=== PATIENT | male | born 1930 | race Two or more races ===

== ENCOUNTER 2020-04-18 02:40 | Inpatient (IN) | payer MEDICAID ==
[~2020-04-18] VITALS: Ht 165.1 cm; Wt 80.7 kg
[2020-04-18 03:55] VITALS: BP 140/73
--- NOTE | 2020-04-18 03:55 | NUR ---
MS UTILITY LOCATE TECHNICIAN NOTES PATIENT ARRIVED ON UNIT VIA GURNEY, ACCOMPANIED BY 2 EMT STAFF 0355; DIRECT ADMIT FROM [facility], RECEIVED REPORT FROM LUCIA VALENCIA 0300. 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
[2020-04-18 04:15] VITALS: BP 140/73
[2020-04-18] MEDS ORDERED: IV NS 0.9% 1,000 ML IV PRN (04:36)
[2020-04-18] MEDS ORDERED: PIPERACILLIN /TAZOBACTAM 3.375 G in IV D5W 50 ML IV ONE (05:00)
[2020-04-18] MEDS ORDERED: Z GUARD REMEDY 2 OZ OINT TP PRN (05:00)
[2020-04-18] MEDS ORDERED: ONDANSETRON HCL/PF 4 MG/2 ML VIAL IVP PRN (05:00)
[2020-04-18] MEDS ORDERED: PIPERACILLIN /TAZOBACTAM 3.375 G VIAL IV ONE (05:01)
--- NOTE | 2020-04-18 05:24 | NUR ---
MS RN NOTES SPOKE WITH DR. SCHERER REGARDING CHEMICAL PROPHYLAXIS; PER MD, HOLD OFF ON CHEMICAL PROPHYLAXIS D/T POSSIBLE PROCEDURE; NEEDS CARDIAC CLEARANCE, DR. PEDROZA ALSO AWARE; DVT PUMPS ORDERED BUT NO DVT MACHINE AVAILABLE, WILL ENDORSE TO ONCOMING SHIFT; WILL CONT TO MONITOR
--- NOTE | 2020-04-18 05:34 | NUR ---
MS RN NOTES MRSA SWAB COLLECTED VIA R NARE; SPECIMEN GIVEN TO SOFT TILE SETTER; AWAITING RESULTS
[2020-04-18] MEDS ORDERED: PIPERACILLIN /TAZOBACTAM 3.375 G in IV D5W 50 ML IV SCH (06:00)
--- NOTE | 2020-04-18 06:44 | NUR ---
MS RN CLOSING NOTES PATIENT RESTING IN BED COMFORTABLY; A/OX2 UKRAINIAN SPEAKER; BREATHING EVEN AND UNLABORED; NO SOB NOTED; PATIENT TOLERATING ROOM AIR WELL; R AC # 20 INTACT AND PATENT; FLUSHING WELL; NO S/S OF REDNESS OR INFILTRATION NOTED; ALL NEEDS RENDERED; NO CHEMICAL PROPHYLAXIS ORDERED PER MD D/T POSSIBLE PROCEDURE; PATIENT NPO STATUS MAINTAINED; SAFETY PRECAUTIONS IMPLEMENTED; BED LOCKED IN LOW POSITION; SIDE RAILS X2; CALL LIGHT WITHIN REACH; WILL ENDORSE MARLO TO ONCOMING SHIFT Addendum: 04/18/20 at 0730 by BECKI KAPADIA RN NO DVT PUMPS AVAILABLE DURING GEODESY TEACHER; CENTRAL SUPPLY INFORMED; DVT PUMPS ENDORSED TO LUCIA RAMIREZ
--- NOTE | 2020-04-18 07:30 | NUR ---
MS/RN Opening note Received patient in bed, sleeping, does no appears pain or any discomfort at this time. Skin is warm to touch, kept clean/dry, intact IV site site. Respiratory even and unlabored with room air. Noticed ABD distension, exist bowel sound on LUQ and LLQ only. Keep bed in lock position with low and elevated HOB for secure airway. Call light within reach, will continue to monitor.
[2020-04-18 08:17] LABS: BASOPHILS % (AUTO) 0.1 % (0.0-2.0); HEMATOCRIT 39 % (39-51); HEMOGLOBIN 12.7 g/dL (13.5-17.5); LYMPHOCYTES # (AUTO) 0.8 /CMM (0.8-4.8); LYMPHOCYTES % (AUTO) 2.5 % (20.0-44.0); MEAN CORPUSCULAR HGB CONC 33 g/dl (31.0-36.0); MEAN CORPUSCULAR VOLUME 96 fL (80-96); MONOCYTES # (AUTO) 1.1 /CMM (0.1-1.30); MONOCYTES % (AUTO) 3.5 % (2.0-12.0); NEUTROPHILS % (AUTO) 93.9 % (43.0-81.0); PLATELET COUNT (AUTO) 226 /CMM (150-450); RED BLOOD CELL COUNT(AUTO) 4.03 MIL/uL (4.5-6.0)
[2020-04-18] MEDS ORDERED: GABA-534 PO (08:39)
[2020-04-18] MEDS ORDERED: FURO40TA5 PO (08:39)
[2020-04-18] MEDS ORDERED: CARV12.52 PO (08:39)
[2020-04-18] MEDS ORDERED: INSU100V SQ (08:39)
[2020-04-18] MEDS ORDERED: INSU100V10 SQ (08:39)
[2020-04-18] MEDS ORDERED: ACET325T53 PO (08:39)
[2020-04-18] MEDS ORDERED: TERA2CAP4 PO (08:39)
[2020-04-18] MEDS ORDERED: ENAL2.5T17 PO (08:39)
[2020-04-18] MEDS ORDERED: ATOR40TA PO (08:39)
[2020-04-18 08:45] LABS: ALANINE AMINOTRANSFERASE 39 U/L (12-78); ALBUMIN 2.5 g/dL (3.4-5.0); ALKALINE PHOSPHATASE 137 U/L (46-116); ASPARTATE AMINOTRANSFERASE 33 U/L (15-37); BILIRUBIN,TOTAL 0.7 mg/dL (0.2-1.0); CALCIUM, SERUM 8.7 mg/dL (8.5-10.1); CARBON DIOXIDE 28 mmol/L (21-32); CHLORIDE 99 mmol/L (98-107); CREATININE 1.5 mg/dL (0.6-1.3); GLUCOSE 213 mg/dL (74-106); LIPASE 88 U/L (73-393); MAGNESIUM 1.9 mg/dL (1.8-2.4); PHOSPHORUS 3.8 mg/dL (2.5-4.9); POTASSIUM 4.6 mmol/L (3.5-5.1); SODIUM SERUM 136 mmol/L (136-145); TOTAL PROTEIN, SERUM 7.1 g/dL (6.4-8.2); UREA NITROGEN, BLOOD 20 mg/dL (7-18)
[2020-04-18 08:54] VITALS: BP 115/62
[2020-04-18 09:07] LABS: WHITE BLOOD COUNT (AUTO) 31.9 K/uL (4.3-11.0)
--- NOTE | 2020-04-18 09:10 | NUR ---
Patient noticed WBC critical value:31.9 this morning, Dr. Blackburn made aware.
[2020-04-18] MEDS: PIPERACILLIN /TAZOBACTAM 3.375 G in IV D5W 100 ML IV SCH ×2 (11:24→19:57)
[2020-04-18] MEDS: MORPHINE SULFATE INJ 2 MG/ML DISP.SYRIN IV PRN ×3 (11:25→22:38)
[2020-04-18] MEDS ORDERED: ENALAPRIL MALEATE (5 MG) 5 MG TABLET PO SCH (11:30)
[2020-04-18 11:59] LABS: BAND % (MANUAL) 2 % (0.0-5.0); LYMPHOCYTES % (MANUAL) 5 % (16-48); MONOCYTES % (MANUAL) 2 % (0-11.0); NEUTROPHILS % (MANUAL) 91 (42-76)
[2020-04-18 12:17] LABS: THYROID STIMULATING HORMONE 1.004 uIU/mL (0.358-3.74)
[2020-04-18 12:29] LABS: TRIGLYCERIDES 64 mg/dL (30-150)
[2020-04-18 12:30] LABS: CHOLESTEROL 83 mg/dL (<200); HDL CHOLESTEROL 27 mg/dL (40-60); LDL 40 mg/dL (0-99)
--- NOTE | 2020-04-18 13:30 | NUR ---
Patient going have procedure tomorrow, obtained sign for consent from Son/Carmelo Charles.
[2020-04-18 16:00] VITALS: BP 110/57
[2020-04-18] MEDS: GABAPENTIN 300 MG CAPSULE PO SCH (17:00)
--- NOTE | 2020-04-18 18:50 | NUR ---
MS/RN Closing note Patient in bed comfortable, does no appears pain or any discomfort at this time. Intact IV site and skin is warm to touch, kept clean/dry. Respiratory even and unlabored with room air. keep bed in locked position with low and elevated head of bed, call light within reach, will endorse hospital unit clerk.
[2020-04-18 20:00] VITALS: BP 120/63
[2020-04-18] MEDS: CARVEDILOL 12.5 MG TABLET PO SCH (21:00)
--- NOTE | 2020-04-18 21:01 | NUR ---
RN NOTE COREG AND HYTRIN HELD DUE TO NPO STATUS FOR SURGERY PER MD. BLOOD PRESSURE AND HEART RATE WNL.
[2020-04-18] MEDS: TERAZOSIN HCL 1 MG CAPSULE PO SCH (21:11)
[2020-04-19] MEDS: PIPERACILLIN /TAZOBACTAM 3.375 G in IV D5W 100 ML IV SCH ×3 (03:17→20:13)
--- NOTE | 2020-04-19 06:55 | NUR ---
RN CLOSING NOTE NO ACUTE CHANGES OBSERVED OVERNIGHT. PAT REMAINS ALERT AND ORIENTED X 2 WITH PERIODS OF CONFUSION. UNABLE TO OBTAIN URINE SAMPLE. PT IS PENDING PROCEDURE TODAY, CONSENT FORMS SIGNED. IV FLUIDS RUNNING ORDERED WITHOUT COMPLICATIONS NOTED AT SITE. CALL LIGHT WITHIN REACH, SAFETY MEASURES IN PLACE, WILL ENDORSE TO MORNING RN FOR CONTINUATION OF CARE.
[2020-04-19 07:09] LABS: HEMATOCRIT 36 % (39-51); HEMOGLOBIN 11.5 g/dL (13.5-17.5); LYMPHOCYTES # (AUTO) 0.6 /CMM (0.8-4.8); LYMPHOCYTES % (AUTO) 1.9 % (20.0-44.0); MEAN CORPUSCULAR HGB CONC 32 g/dl (31.0-36.0); MEAN CORPUSCULAR VOLUME 96 fL (80-96); MONOCYTES # (AUTO) 0.7 /CMM (0.1-1.30); MONOCYTES % (AUTO) 2.2 % (2.0-12.0); NEUTROPHILS # (AUTO) 29.6 /CMM (1.8-8.9); NEUTROPHILS % (AUTO) 95.9 % (43.0-81.0); PLATELET COUNT (AUTO) 219 /CMM (150-450); RED BLOOD CELL COUNT(AUTO) 3.71 MIL/uL (4.5-6.0)
[2020-04-19] MEDS ORDERED: MIDAZOLAM HCL 2 MG/2ML VIAL ONE (07:22)
[2020-04-19] MEDS ORDERED: FENTANYL PF 250MCG/5ML AMPUL ONE (07:22)
[2020-04-19] MEDS ORDERED: ROCURONIUM BROMIDE 50 MG/5 ML ONE (07:23)
[2020-04-19] MEDS ORDERED: FAMOTIDINE/PF INJ 20 MG/2 ML VIAL IV ONE (07:23)
[2020-04-19] MEDS ORDERED: BUPIVACAINE 0.5 % PF 150 MG/30 ML VIAL ONE (07:26)
[2020-04-19] MEDS ORDERED: ANESTHESIA TRAY IN PYXIS 1 EA TRAY MC ONE (07:26)
[2020-04-19 07:33] LABS: ALANINE AMINOTRANSFERASE 31 U/L (12-78); ALBUMIN 2.2 g/dL (3.4-5.0); ALKALINE PHOSPHATASE 121 U/L (46-116); ASPARTATE AMINOTRANSFERASE 27 U/L (15-37); BILIRUBIN,TOTAL 0.7 mg/dL (0.2-1.0); CALCIUM, SERUM 8.7 mg/dL (8.5-10.1); CARBON DIOXIDE 28 mmol/L (21-32); CHLORIDE 99 mmol/L (98-107); CREATININE 2.4 mg/dL (0.6-1.3); GLUCOSE 192 mg/dL (74-106); PHOSPHORUS 4.3 mg/dL (2.5-4.9); POTASSIUM 4.6 mmol/L (3.5-5.1); SODIUM SERUM 136 mmol/L (136-145); TOTAL PROTEIN, SERUM 6.9 g/dL (6.4-8.2); UREA NITROGEN, BLOOD 35 mg/dL (7-18)
--- NOTE | 2020-04-19 07:50 | NUR ---
MS/RN Opening Note Received patient in bed, AO x 2-3, able to responds all stimuli. Pt kept NPO status for procedure this morning, does no c/o pain or any discomfort at his time, skin is warm to touch, respiratory even and unlabored in room air. OR nurse picked up patient to down stair, patient in stable condition. V/S: bp-111/60, p-71, r-18, t-97.5, [id number] in RA. Will continue to monitor.
[2020-04-19 08:00] VITALS: BP 111/60
[2020-04-19 08:00] LABS: WHITE BLOOD COUNT (AUTO) 30.9 K/uL (4.3-11.0)
[2020-04-19] MEDS: GABAPENTIN 300 MG CAPSULE PO SCH ×2 (09:00→17:25)
[2020-04-19] MEDS: CARVEDILOL 12.5 MG TABLET PO SCH ×2 (09:00→21:00)
[2020-04-19 09:05] LABS: BAND % (MANUAL) 3 % (0.0-5.0); LYMPHOCYTES % (MANUAL) 1 % (16-48); MONOCYTES % (MANUAL) 2 % (0-11.0); NEUTROPHILS % (MANUAL) 94 (42-76)
[2020-04-19] MEDS ORDERED: HYDROMORPHONE 1 MG/1 ML DISP.SYRIN ONE (09:44)
--- NOTE | 2020-04-19 10:15 | NUR ---
Patient came back from procedure, 4 small section stitches on ABD, DEONTE tube sanguineous drainage 50cc at this time, dressing clean/dry no active bleeding from stitches. Pt denies pain or discomfort, in stable condition. V/S: bp-105/67, p-87, t-98.6, r-20, O2sat 92% with oxygen 2LPM. Will continue to monitor.
[2020-04-19 10:30] VITALS: BP 114/60
[2020-04-19 10:45] VITALS: BP 123/60
[2020-04-19 11:15] VITALS: BP 108/57
--- NOTE | 2020-04-19 11:40 | NUR ---
INITIAL ECHOCARDIOGRAM SHOWED EF 30%~.
[2020-04-19] MEDS: MORPHINE SULFATE INJ 2 MG/ML DISP.SYRIN IV PRN ×2 (13:28→23:25)
[2020-04-19] MEDS: oxyCODONE/APAP (5/325 MG) 1 UDTAB TABLET PO PRN (15:43)
[2020-04-19 15:51] LABS: CREATINE KINASE, TOTAL 23 U/L (39-308)
[2020-04-19 16:00] VITALS: BP 131/76
--- NOTE | 2020-04-19 18:30 | NUR ---
MS/RN Closing Note Patient in bed, remains s/p cholecystectomy, DEONTE tube on RLQ 345cc out put. Noticed pt moaning and given pain medication as needed. Respiration even and unlabored with room air. Skin is warm to touch, kept clean/dry at stitches site, no adverse reaction observed from ATB IV therapy. Kept bed in lock with low position and elevated head of bed for secure airway. Call light within reach, will endorse business job titles.
--- NOTE | 2020-04-19 19:25 | NUR ---
MS RN OPENING NOTES PATIENT SLEEPING IN BED, EASY TO AWAKEN. A/OX2-3. ON RA. NO S/S OF ACUTE RESPIRATORY DISTRESS; BREATHING IS EVEN AND UNLABORED. NO S/S OF PAIN NOTED. SURGICAL SITE IS DRY AND INTACT. JPEG PRESENT WITH 60 ML OF DARK BROWN FLUID. IV PRESENT ON RIGHT AC, SIZE 20, INTACT & PATENT, HEP LOCKED. IV PRESENT ON RIGHT FA, SIZE 22, INTACT & PATENT WITH KCL 20 MEQ NS RUNNING AT 20 ML/HR. SAFETY MEASURES IN PLACE AND PATIENT'S NEEDS MET. BED LOCKED, ALARM ON, SIDE RAILS X2, CALL LIGHT WITHIN REACH. WILL CONTINUE TO MONITOR.
[2020-04-19 20:00] VITALS: BP 118/69
[2020-04-19] MEDS: TERAZOSIN HCL 1 MG CAPSULE PO SCH (22:00)
--- NOTE | 2020-04-20 00:30 | NUR ---
MS RN NOTES PATIENT BECAME AGITATED AND MORE CONFUSED. BEGAN TAKING OFF GOWN AND PULLING ON IV LINE AND JPEG DRAIN. NOTIFIED CURING PRESS OPERATOR MD NATHALY GROSSMAN, RECEIVED ORDERS FOR BILATERAL SOFT WRIST RESTRAINTS..
[2020-04-20 03:20] VITALS: BP 151/77
[2020-04-20] MEDS: MORPHINE SULFATE INJ 2 MG/ML DISP.SYRIN IV PRN (03:27)
[2020-04-20] MEDS: PIPERACILLIN /TAZOBACTAM 3.375 G in IV D5W 100 ML IV SCH ×3 (04:47→20:34)
[2020-04-20 07:19] LABS: HEMATOCRIT 33 % (39-51); HEMOGLOBIN 10.9 g/dL (13.5-17.5); LYMPHOCYTES # (AUTO) 0.6 /CMM (0.8-4.8); LYMPHOCYTES % (AUTO) 2.7 % (20.0-44.0); MEAN CORPUSCULAR HGB CONC 33 g/dl (31.0-36.0); MEAN CORPUSCULAR VOLUME 96 fL (80-96); MONOCYTES # (AUTO) 0.5 /CMM (0.1-1.30); MONOCYTES % (AUTO) 2.2 % (2.0-12.0); NEUTROPHILS # (AUTO) 22.8 /CMM (1.8-8.9); NEUTROPHILS % (AUTO) 95.1 % (43.0-81.0); PLATELET COUNT (AUTO) 205 /CMM (150-450); RED BLOOD CELL COUNT(AUTO) 3.45 MIL/uL (4.5-6.0)
[2020-04-20 07:20] LABS: ALANINE AMINOTRANSFERASE 30 U/L (12-78); ALBUMIN 1.9 g/dL (3.4-5.0); ALKALINE PHOSPHATASE 108 U/L (46-116); ASPARTATE AMINOTRANSFERASE 33 U/L (15-37); BILIRUBIN,TOTAL 0.5 mg/dL (0.2-1.0); CALCIUM, SERUM 8.5 mg/dL (8.5-10.1); CARBON DIOXIDE 26 mmol/L (21-32); CHLORIDE 102 mmol/L (98-107); CREATININE 2.7 mg/dL (0.6-1.3); GLUCOSE 189 mg/dL (74-106); MAGNESIUM 2.2 mg/dL (1.8-2.4); PHOSPHORUS 4.1 mg/dL (2.5-4.9); POTASSIUM 4.5 mmol/L (3.5-5.1); SODIUM SERUM 136 mmol/L (136-145); TOTAL PROTEIN, SERUM 6.7 g/dL (6.4-8.2); UREA NITROGEN, BLOOD 45 mg/dL (7-18)
--- NOTE | 2020-04-20 07:30 | NUR ---
MS/ RN OPENING NOTES RECEIVED PATIENT SLEEPING IN BED. PATIENT ON ROOM AIR, NO S/S OF ACUTE RESPIRATORY DISTRESS NOTED; BREATHING IS EVEN AND UNLABORED. NO S/S OF PAIN NOTED. SURGICAL SITE IS DRY AND INTACT. JPEG PRESENT AND IN PLACE. IV PRESENT ON RIGHT AC #20G, INTACT & PATENT. SAFETY MEASURES IN PLACE, BED LOCKED AND IN LOW POSITION, ALARM ON, SIDE RAILS X2, CALL LIGHT WITHIN REACH. WILL CONTINUE TO MONITOR THROUGH SHIFT.
--- NOTE | 2020-04-20 07:41 | NUR ---
MS RN CLOSING NOTES PATIENT SLEEPING IN BED, EASY TO AWAKEN. A/OX2-3. ON RA. NO S/S OF ACUTE RESPIRATORY DISTRESS; BREATHING IS EVEN AND UNLABORED. NO S/S OF PAIN NOTED. SURGICAL SITES ARE DRY AND INTACT. JPEG REMAINS INTACT AND PATENT. IV PRESENT ON RIGHT AC, SIZE 20, INTACT & PATENT WITH KCL 20 MEQ NS RUNNING AT 75 ML/HR. SAFETY MEASURES IN PLACE AND PATIENT'S NEEDS MET. BED LOCKED, ALARM ON, SIDE RAILS X2, CALL LIGHT WITHIN REACH.WILL ENDORSE TO DAY SHIFT NURSE PLAN OF CARE.
--- NOTE | 2020-04-20 07:44 | NUR ---
MS RN CLOSING NOTES SOFT BILATERAL WRIST RESTRAINTS PRESENT. SKIN CIRCULATION REMAINS WNL.
[2020-04-20 08:00] VITALS: BP 121/65
[2020-04-20 08:07] LABS: PTH, INTACT 103 pg/mL (15-65)
[2020-04-20] MEDS: GABAPENTIN 300 MG CAPSULE PO SCH ×2 (09:00→17:48)
[2020-04-20] MEDS: CARVEDILOL 12.5 MG TABLET PO SCH ×2 (09:00→21:56)
--- NOTE | 2020-04-20 13:53 | NUR ---
MS/RN NOTE THE PATIENT BACK FROM [facility] AT 1350. WILL ADMINISTER ZOSYN SCHEDULED AT 1200.
[2020-04-20 16:00] VITALS: BP 124/71
[2020-04-20 16:06] LABS: *SPE A/G RATIO 0.6 (0.7-1.7); *SPE ALBUMIN 2.2 g/dL (2.9-4.4); *SPE ALPHA-1-GLOBULIN 0.5 g/dL (0.0-0.4); *SPE BETA GLOBULIN 1.1 g/dL (0.7-1.3); *SPE GLOBULIN, TOTAL 3.6 g/dL (2.2-3.9); *SPE M-SPIKE Not Observed g/dL (Not Observed)
--- NOTE | 2020-04-20 18:45 | NUR ---
MS/RN CLOSING NOTES PATIENT AWAKE IN BED, ALERT AND ORIENTED X 2. PATIENT ON ROOM AIR, NO S/S OF SOB OR ACUTE RESPIRATORY DISTRESS NOTED. PATIENT DEONTE DRAIN IN PLACE AND INTACT, OUTPUT 270ML DURING SHIFT, FLUID A DARK BROWN COLOR, THICK CONSISTENCY. IV IN RIGHT AC #20G IN PLACE AND INTACT RUNNING KCL 20 LEV 1/2 NS @ 75ML/HR. PATIENT HAS BILATERAL SOFT WRIST RESTRAINS IN PLACE AND NO SKIN BREAK DOWN AND NO S/S OF POOR CIRCULATION NOTED. SAFETY MEASURES IN PLACE, BED IN LOW POSITION AND LOCKED, SIDE RAILS UP X 3. WILL ENDORSE CARE TO ELECTRIC METER REPAIRER HELPER NURSE.
--- NOTE | 2020-04-20 19:10 | NUR ---
MS RN NOTES RECEIVED PT IN BED AND AWAKE. PT A/O X1-2 WITH PERIODS OF CONFUSION AND SAMI SPEAKING. RESPIRATIONS EVEN AND UNLABORED WITH NO S/S OF ACUTE DISTRESS OR SOB NOTED. PT NOTED WITH DEONTE DRAIN INTACT AND DRAINING. PT WITH IV IN RIGHT AC #20G PATENT AND INTACT INFUSING KCL 20 LEV 1/2 NS @ 75ML/HR. PT NOTED WITH BILATERAL SOFT WRIST RESTRAINS IN PLACE. SAFETY MEASURES IN PLACE WITH BED IN LOWEST LOCKED POSITION WITH SIDE RAILS UP X2. CALL LIGHT WITHIN REACH. WILL CONTINUE TO MONITOR.
[2020-04-20 20:00] VITALS: BP 131/71
[2020-04-20] MEDS: TERAZOSIN HCL 1 MG CAPSULE PO SCH (21:56)
[2020-04-21] MEDS: PIPERACILLIN /TAZOBACTAM 3.375 G in IV D5W 100 ML IV SCH ×3 (04:36→21:48)
[2020-04-21 07:29] LABS: BASOPHILS # (AUTO) 0.1 /CMM (0.0-0.2); BASOPHILS % (AUTO) 0.3 % (0.0-2.0); EOSINOPHILS % (AUTO) 0.2 % (0.0-6.0); HEMATOCRIT 33 % (39-51); HEMOGLOBIN 10.6 g/dL (13.5-17.5); LYMPHOCYTES # (AUTO) 0.9 /CMM (0.8-4.8); LYMPHOCYTES % (AUTO) 4.6 % (20.0-44.0); MEAN CORPUSCULAR HGB CONC 32 g/dl (31.0-36.0); MEAN CORPUSCULAR VOLUME 96 fL (80-96); MONOCYTES # (AUTO) 0.6 /CMM (0.1-1.30); MONOCYTES % (AUTO) 3.3 % (2.0-12.0); NEUTROPHILS # (AUTO) 17.5 /CMM (1.8-8.9); NEUTROPHILS % (AUTO) 91.6 % (43.0-81.0); PLATELET COUNT (AUTO) 206 /CMM (150-450); RED BLOOD CELL COUNT(AUTO) 3.41 MIL/uL (4.5-6.0); WHITE BLOOD COUNT (AUTO) 19.1 K/uL (4.3-11.0)
[2020-04-21 07:44] LABS: ALANINE AMINOTRANSFERASE 30 U/L (12-78); ALBUMIN 1.9 g/dL (3.4-5.0); ALKALINE PHOSPHATASE 138 U/L (46-116); ASPARTATE AMINOTRANSFERASE 41 U/L (15-37); BILIRUBIN,TOTAL 0.8 mg/dL (0.2-1.0); CALCIUM, SERUM 8.8 mg/dL (8.5-10.1); CARBON DIOXIDE 26 mmol/L (21-32); CHLORIDE 102 mmol/L (98-107); CREATININE 2.5 mg/dL (0.6-1.3); GLUCOSE 233 mg/dL (74-106); MAGNESIUM 2.4 mg/dL (1.8-2.4); PHOSPHORUS 3.3 mg/dL (2.5-4.9); POTASSIUM 4.4 mmol/L (3.5-5.1); SODIUM SERUM 137 mmol/L (136-145); TOTAL PROTEIN, SERUM 6.9 g/dL (6.4-8.2); UREA NITROGEN, BLOOD 52 mg/dL (7-18)
--- NOTE | 2020-04-21 07:45 | NUR ---
rn notes patient received on room air, no sob noted, patient shows no s/s of pain at this time. R ac 20 gauge with KCI 20 meq and 1/2 ns @ 75 ml per hour running. Might have to stop potassium IV because of 4.5 potassium level. bed at the lowest setting, call light within reach, side rails up x2.
[2020-04-21 07:51] LABS: CREATINE KINASE, TOTAL 33 U/L (39-308)
[2020-04-21 08:00] VITALS: BP 139/78
--- NOTE | 2020-04-21 08:12 | NUR ---
MS RN NOTES PT IN BED AND AWAKE. PT A/O X1-2 WITH PERIODS OF CONFUSION AND FRENCH SPEAKING. RESPIRATIONS EVEN AND UNLABORED WITH NO S/S OF ACUTE DISTRESS OR SOB NOTED THROUGHOUT SHIFT. PT KEPT CLEAN, DRY, AND COMFORTABLE. PT NOTED WITH DEONTE DRAIN INTACT AND DRAINING. PT WITH IV IN RIGHT AC #20G PATENT AND INTACT INFUSING KCL 20 LEV 1/2 NS @ 75ML/HR. PT NOTED WITH BILATERAL SOFT WRIST RESTRAINS IN PLACE. SAFETY MEASURES IN PLACE WITH BED IN LOWEST LOCKED POSITION WITH SIDE RAILS UP X2. CALL LIGHT WITHIN REACH. WILL ENDORSE TO ONCOMING NURSE FOR MARLO.
[2020-04-21] MEDS: CARVEDILOL 12.5 MG TABLET PO SCH ×2 (08:39→21:53)
[2020-04-21] MEDS: GABAPENTIN 300 MG CAPSULE PO SCH ×2 (08:39→17:11)
[2020-04-21 16:00] VITALS: BP 120/73
--- NOTE | 2020-04-21 17:48 | NUR ---
rn notes patient remains on room air, no sob noted, patient shows no s/s of pain at this time. Tajik speaking only. JPEG d/t cholecystectomy present, and drained 30 ml of blood and bile at this time. NPO after midnight is the plan. R AC at this time and will run IV NS @ 75 ml per hour due to normal range of K at 4.4. ECRP procedure scheduled tomorrow, ERCP consent signed by 2 RN's due to patient unable to sign off, consent from VERONIKA Rhodes. Bed at the lowest setting, call light within reach, side rails up x2.
--- NOTE | 2020-04-21 19:30 | NUR ---
PATIENT SEEN RESTRAINTS REMOVED FROM PREVIOUS SHIFT. PATIENT NOT GRABBING AT IV OR TUBES WILL CONT TO MONITOR. SR X3 CALL LIGHT IN REACH. PATIENT IN NO APPARENT RESP OR ACUTE DISTERESS RESP EVEN AND UNLABORED.
[2020-04-21] MEDS: TERAZOSIN HCL 1 MG CAPSULE PO SCH (21:52)
--- NOTE | 2020-04-21 22:00 | NUR ---
NO ORDER TO DISCONTINUE 1/2 NORMAL SALINE WITH KCL. IVF RESTARTED. TO ENDORSE CLARIFICATION TO AM SHIFT. WILL CONT TO MONITOR LABS.
[2020-04-22] VITALS (20 sets, daily range): BP systolic 88–153; BP diastolic 50–98
[2020-04-22] MEDS: PIPERACILLIN /TAZOBACTAM 3.375 G in IV D5W 100 ML IV SCH ×2 (03:41→12:00)
[2020-04-22 06:39] LABS: PTH, INTACT 65 pg/mL (15-65)
--- NOTE | 2020-04-22 07:02 | NUR ---
RN PM CLOSING NOTES. PATIENT DENIES PAIN. SLEPT FOR 8 HOURS LAST NIGHT AXO X1 CITIZEN OF [place] SPEAKING ASSISTED WITH TRANSLATION WITH MARGAUX WHITLOCK. PATIENT REORIENTED TO ROOM. IV RIGHT FA #22 INFUSING HALF NS WITH 20 KCL AT 75 ML PER HOUR NO S/S OF INFILTRATION. PAT BREATHING EVEN AND UNLABORED. NO INCIDIENCE LAST NIGHT. SRX3 BED ALARM ACTIVE. URINE COLLECTED THIS AM. BEDND DOWN CALL LIGHT IN REACH WILL ENDORSE TO AM SHIFT.
--- NOTE | 2020-04-22 07:41 | NUR ---
rn notes patient received on room air, no sob noted, a/o x1 and speaks only icelandic. NPO since midnight. R AC 20 and R fa 22 with 1/2 NS 75 ml per hour. bed at the lowest setting, call light within reach, side rails up x2.
[2020-04-22] MEDS: CARVEDILOL 12.5 MG TABLET PO SCH ×3 (08:01→21:41)
[2020-04-22] MEDS: GABAPENTIN 300 MG CAPSULE PO SCH ×2 (08:01→16:39)
[2020-04-22] MEDS ORDERED: INDOMETHACIN 50 MG SUPP.RECT ONE (11:16)
[2020-04-22] MEDS ORDERED: IOHEXOL 240MG/ML 100 ML IV ONE (11:16)
[2020-04-22] MEDS ORDERED: FAMOTIDINE/PF INJ 20 MG/2 ML VIAL IV ONE ×2 (11:55→15:09)
[2020-04-22] MEDS ORDERED: SUCCINYLCHOLINE CHLORIDE 20 MG/ML VIAL ONE (11:56)
[2020-04-22 12:06] LABS: *SPE A/G RATIO 0.6 (0.7-1.7); *SPE ALBUMIN 2.1 g/dL (2.9-4.4); *SPE ALPHA-1-GLOBULIN 0.5 g/dL (0.0-0.4); *SPE BETA GLOBULIN 1.3 g/dL (0.7-1.3); *SPE GLOBULIN, TOTAL 3.8 g/dL (2.2-3.9); *SPE M-SPIKE Not Observed g/dL (Not Observed)
[2020-04-22 12:18] LABS: APPEARANCE,URINE CLEAR (CLEAR); BILIRUBIN,URINE NEGATIVE (NEGATIVE); BLOOD, URINE SMALL Ery/uL (NEGATIVE); COLOR,URINE YELLOW (YELLOW); KETONES,URINE NEGATIVE (NEGATIVE); LEUKOCYTE ESTERASE ,URINE NEGATIVE (NEGATIVE); NITRITE, URINE NEGATIVE (NEGATIVE); PROTEIN,URINE 30 mg/dl (NEGATIVE); UGLUCOSE NEGATIVE (NEGATIVE); UROBILINOGEN,URINE 0.2 EU/dL (0.2)
[2020-04-22 12:55] LABS: WBC,URINE 0-2 /HPF (0-3)
[2020-04-22 12:56] LABS: BACTERIA,URINE None seen /HPF (None Seen); SQUAMOUS EPITHELIAL CELL,UR Rare /HPF (None Seen)
[2020-04-22] MEDS ORDERED: IV NS 0.9% 1,000 ML IV PRN (12:58)
[2020-04-22 12:59] LABS: URIC ACID CRYSTALS,URINE Few /HPF (None Seen)
[2020-04-22 13:48] LABS: EOSINOPHIL,URINE None Seen
[2020-04-22 13:58] LABS: CREATININE, URINE 66.6 MG/DL (30.0-125.0); URINE TOTAL PROTEIN 113.3 mg/dL (0-11.9)
[2020-04-22] MEDS ORDERED: MIDAZOLAM HCL 2 MG/2ML VIAL ONE (15:08)
[2020-04-22] MEDS ORDERED: FENTANYL PF 250MCG/5ML AMPUL ONE (15:08)
[2020-04-22] MEDS ORDERED: ROCURONIUM BROMIDE 50 MG/5 ML ONE (15:09)
[2020-04-22] MEDS ORDERED: METHYLENE BLUE 10 ML VIAL ONE (16:00)
[2020-04-22] MEDS ORDERED: PROPOFOL 100 ML ONE (16:44)
--- NOTE | 2020-04-22 17:02 | NUR ---
rn notes patient transferred to ICU, given report to Milagro, patient is coming from surgery/recovery room
--- NOTE | 2020-04-22 17:08 | NUR ---
RN NOTES PT RECEIVED FROM OR IN ROOM 259, PT IS INTUBATED, ON VENT, RESPONSE TO PAINFUL STIMULI, DOES NOT FOLLOW COMMAND, STILL SEDATED FROM ANESTHESIA ,TOLERATING VENT SETTING WELL, AC 16 , TV 500, FIO2 50%, FIO2 100%, PEEP 5 AT THIS TIME, ON TELE HR IN 70 AV PACING, NGT TO LIS PER MD ORDER, DEONTE DRAIN TO R LOWER ABDOMEN INTACT WITH SMALL AMOUNT OF BLOODY DRAINAGE , DRESSINGS TO ABDOMEN CLEAN, DRY AND INTACT, MAGANA DRINING TO GRAVITY WITH YELLOW CLEAR URIN , R AC AND R FA IV SITES CLEAN, DRY AND INTACT, NO SKIN BREAKDOWN NOTED, SR UP x3, CALL LIGHT WITHIN EASY REACH, BED LOCKED AND IN LOWEST POSITION, CONTINUE TO MONITOR.
[2020-04-22 17:48] LABS: BASOPHILS # (AUTO) 0.1 /CMM (0.0-0.2); BASOPHILS % (AUTO) 1.2 % (0.0-2.0); EOSINOPHILS % (AUTO) 0.6 % (0.0-6.0); HEMATOCRIT 37 % (39-51); HEMOGLOBIN 11.9 g/dL (13.5-17.5); LYMPHOCYTES # (AUTO) 0.8 /CMM (0.8-4.8); LYMPHOCYTES % (AUTO) 7.2 % (20.0-44.0); MEAN CORPUSCULAR HGB CONC 32 g/dl (31.0-36.0); MEAN CORPUSCULAR VOLUME 98 fL (80-96); MONOCYTES # (AUTO) 0.8 /CMM (0.1-1.30); MONOCYTES % (AUTO) 7.5 % (2.0-12.0); NEUTROPHILS # (AUTO) 9.1 /CMM (1.8-8.9); NEUTROPHILS % (AUTO) 83.5 % (43.0-81.0); PLATELET COUNT (AUTO) 161 /CMM (150-450); RED BLOOD CELL COUNT(AUTO) 3.82 MIL/uL (4.5-6.0); WHITE BLOOD COUNT (AUTO) 10.9 K/uL (4.3-11.0)
[2020-04-22 17:58] LABS: ABG BASE EXCESS -4.7 mmol/L; ABG OXYGEN SATURATION 99.7 % (92.0-98.5); ABG PH 7.363 (7.350-7.450); ABG PO2 438.8 mmHg (75.0-100.0); AaDO2 238.2 mmHg; COHb 0.3 % (0.5-1.5); MetHb 0.2 % (0.0-1.5); O2Hb 99.2 % (94.0-97.0); SITE, ABG Left Radial
[2020-04-22 18:15] LABS: ALANINE AMINOTRANSFERASE 46 U/L (12-78); ALBUMIN 1.8 g/dL (3.4-5.0); ALKALINE PHOSPHATASE 181 U/L (46-116); ASPARTATE AMINOTRANSFERASE 61 U/L (15-37); BILIRUBIN,TOTAL 0.7 mg/dL (0.2-1.0); CALCIUM, SERUM 8.4 mg/dL (8.5-10.1); CARBON DIOXIDE 24 mmol/L (21-32); CHLORIDE 105 mmol/L (98-107); CREATININE 2.2 mg/dL (0.6-1.3); GLUCOSE 204 mg/dL (74-106); MAGNESIUM 2.4 mg/dL (1.8-2.4); PHOSPHORUS 4.2 mg/dL (2.5-4.9); POTASSIUM 5.4 mmol/L (3.5-5.1); SODIUM SERUM 137 mmol/L (136-145); TOTAL PROTEIN, SERUM 6.7 g/dL (6.4-8.2); UREA NITROGEN, BLOOD 44 mg/dL (7-18)
--- NOTE | 2020-04-22 18:55 | NUR ---
RN NOTES PT REMAINS SEDATED, VSS STABLE, FIO2 50% AT THIS TIME, WILL ENDOSE TO SLAG SKIMMER NURSE FOR CONTINUITY OF CARE.
[2020-04-22] MEDS: IV 0.45% NS W/20 MEQ KCL 1L IV PRN ×2 (19:00)
[2020-04-22] MEDS: PROPOFOL 100 ML IV PRN (20:05)
[2020-04-22] MEDS: ANCEF 1 GM/50 ML D5W IV SCH ×2 (20:17)
--- NOTE | 2020-04-22 20:30 | NUR ---
RN NOTES RECEIVED PT STARTED ON SEDATION PATIENT IS MOVING ON BED TRYING TO TOUCH TUBE. ORALLY INTUBATED WITH ETT 8 AND 22 CM AT LIPLINE WITH VENT SETTING OF AC 16 TV 500 FIO2 50% AND PEEP 5 TOLERATED WELL SATURATION 100%. AFEBRILE. V PACING ON TELE MONITOR. NGT ON LIS WITH COLOR BLUE OUTPUT DUE TO METHYLENE BLUE ADMINISTERED DURING OPERATION. IV ISTE ON RAC G 20 RFA G 22 LEVOPHED RUNNING TITRATED ORDERED. IVF WITH KCL @ 125 ML.HR TOLERATED WELL. 4 PUNCTURE NOTED IN ABDOMEN INTACT NO BLEEDING. DEONTE DRAINED WITH BLOODY COLOR OUTPUT. KEPT PT CLEAN AND DRY. T/R FOR COMFORT. WILL CONT. POC.
[2020-04-22] MEDS: METRONIDAZOLE 500MG/ NS 100ML 500 MG in PREMIX 1 EA IV SCH (20:33)
[2020-04-22] MEDS: PANTOPRAZOLE 40 MG VIAL IV SCH (21:40)
[2020-04-22] MEDS: TERAZOSIN HCL 1 MG CAPSULE PO SCH (22:00)
[2020-04-23] VITALS (18 sets, daily range): BP systolic 91–129; BP diastolic 43–69
[2020-04-23] MEDS: IV 0.45% NS W/20 MEQ KCL 1L IV PRN ×2 (03:26)
[2020-04-23] MEDS: ANCEF 1 GM/50 ML D5W IV SCH ×6 (03:32→20:00)
[2020-04-23 04:09] LABS: BASOPHILS % (AUTO) 0.2 % (0.0-2.0); EOSINOPHILS % (AUTO) 0.1 % (0.0-6.0); HEMATOCRIT 35 % (39-51); HEMOGLOBIN 11.3 g/dL (13.5-17.5); LYMPHOCYTES # (AUTO) 0.5 /CMM (0.8-4.8); LYMPHOCYTES % (AUTO) 3.5 % (20.0-44.0); MEAN CORPUSCULAR HGB CONC 33 g/dl (31.0-36.0); MEAN CORPUSCULAR VOLUME 96 fL (80-96); MONOCYTES # (AUTO) 0.7 /CMM (0.1-1.30); MONOCYTES % (AUTO) 5.3 % (2.0-12.0); NEUTROPHILS # (AUTO) 12.5 /CMM (1.8-8.9); NEUTROPHILS % (AUTO) 90.9 % (43.0-81.0); PLATELET COUNT (AUTO) 172 /CMM (150-450); WHITE BLOOD COUNT (AUTO) 13.7 K/uL (4.3-11.0)
[2020-04-23 04:38] LABS: ALANINE AMINOTRANSFERASE 27 U/L (12-78); ALBUMIN 1.7 g/dL (3.4-5.0); ALKALINE PHOSPHATASE 152 U/L (46-116); ASPARTATE AMINOTRANSFERASE 33 U/L (15-37); BILIRUBIN,TOTAL 0.8 mg/dL (0.2-1.0); CALCIUM, SERUM 8.2 mg/dL (8.5-10.1); CARBON DIOXIDE 23 mmol/L (21-32); CHLORIDE 107 mmol/L (98-107); CREATININE 2.2 mg/dL (0.6-1.3); GLUCOSE 192 mg/dL (74-106); MAGNESIUM 2.1 mg/dL (1.8-2.4); SODIUM SERUM 139 mmol/L (136-145); TOTAL PROTEIN, SERUM 6.1 g/dL (6.4-8.2); UREA NITROGEN, BLOOD 44 mg/dL (7-18)
[2020-04-23] MEDS: METRONIDAZOLE 500MG/ NS 100ML 500 MG in PREMIX 1 EA IV SCH ×3 (04:44→21:00)
--- NOTE | 2020-04-23 07:05 | NUR ---
RN NOTES RECEIVED PT ON BED, ORALLLY INTUBATED, AND SEDATED, ETT 8 AND 22 CM AT LIPLINE WITH VENT SETTING OF AC 16 TV 500 FIO2 50% AND PEEP 5 TOLERATED WELL SATURATION 100%. AFEBRILE. V PACING ON TELE MONITOR HR IN 70'S, NGT ON LIS WITH COLOR BLUE OUTPUT DUE TO METHYLENE BLUE ADMINISTERED DURING OPERATION. IV SITES ON RAC G 20 RFA G 22 , IVF WITH KCL @ 125 ML.HR RUNNING, DRESSINGS TO ABDMENT CLEAN, DRY AND INTACT, DEONTE DRAINED WITH SMALL AMOUNT OF BLOODY COLOR DRAINAGE OUTPUT. KEPT PT CLEAN AND DRY. WILL CONTINUE TO MONITOR.
--- NOTE | 2020-04-23 07:09 | NUR ---
RN NOTES CONTINUE ON SEDATION. ET AND VENT SETTING TOLERATED WELL FIO2 @ 40 %. TOLERATED WITH SATURATION 98%. TMAX 99.2 DEG [facility]. INCONTINENT CARE RENDERED. IV SITE INTACT AND PATENT RUNNING WITH PROPOFOL AND IVF. NGT ON LIS STILL WITH METHYLENE BLUE. PUNCTURE SITE ON ABDOMEN KEPT CLEAN AND DRY. ENDORSED CONTINUITY OF CARE TO AM NURSE.
[2020-04-23] MEDS: IV NS 0.9% 1,000 ML IV PRN ×2 (08:05→23:15)
[2020-04-23] MEDS: GABAPENTIN 300 MG CAPSULE PO SCH ×2 (08:17→16:32)
[2020-04-23] MEDS: PANTOPRAZOLE 40 MG VIAL IV SCH ×2 (08:17→20:58)
[2020-04-23] MEDS: CARVEDILOL 12.5 MG TABLET PO SCH ×2 (08:18→20:57)
[2020-04-23] MEDS: PROPOFOL 100 ML IV PRN (08:22)
[2020-04-23] MEDS ORDERED: DC PROPOFOL WHEN EXTUBATED XX PRN ×2 (09:00→11:15)
[2020-04-23 11:07] LABS: ABG BASE EXCESS -4.8 mmol/L; ABG OXYGEN SATURATION 98.3 % (92.0-98.5); ABG PCO2 29.2 mmHg (35.0-45.0); ABG PH 7.421 (7.350-7.450); AaDO2 138.6 mmHg; COHb 0.3 % (0.5-1.5); MetHb 0.1 % (0.0-1.5); O2Hb 97.9 % (94.0-97.0); SITE, ABG Left Radial; VENT MODE, BG SIMV 4 500 PS15 +5 40%
--- NOTE | 2020-04-23 11:15 | NUR ---
RN NOTES ABG DONE , DR BAILEY CRAWLEY, PT ON SIMV MODE, ORDER RECEIVED TO EXTUBATE PT. PT GOT EXTUBATED , VSS STABLE, PT IS CONFUSED, AND PULLING ON HIS LINES, LAYO PROTECTIVE DEVICE ON FOR PT SAFETY . CONTINUE TO MONITOR .
[2020-04-23] MEDS: ACETAMINOPHEN 325 MG TABLET PO PRN ×2 (13:14→20:57)
--- NOTE | 2020-04-23 18:39 | NUR ---
RN NOTES PT TOLERANG 02 AT 2L O2 N/C WELL, NO SOB NOTED, O2 SAT WNL, NGT TO LIS WITH SMALL AMOUNT OF DRAINING , NS AT 70CC/HR RUNNING , SR UP X3, CALL LIGHT WITHIN EASY REACH, BED LOCKED AND IN LOWEST POSITION, WILL ENDOSE TO SUPERVISOR CIGAR MAKING HAND NURSE FOR CONTINUITY OF CARE .
--- NOTE | 2020-04-23 19:38 | NUR ---
ELECTROMECHANICAL EQUIPMENT ASSEMBLER OPENING NOTES: Received pt in bed, opens eyes but does not follow commands. On 3L/min NC tolerating well. No SOB or respiratory distress noted. AV pacing on tele monitor. No pain noted at this time. NGT to light suction. RAC #20 and RFA #22 patent and flushing. Dressing c/d/i. NS at 70ml/hr infusing. DEONTE drain to right lower abdomen. Ryan cath in place patent and draining urine. Safety measures in place. Will continue to monitor.
[2020-04-23] MEDS: TERAZOSIN HCL 1 MG CAPSULE PO SCH (21:18)
[2020-04-24] VITALS (18 sets, daily range): BP systolic 97–143; BP diastolic 55–85
[2020-04-24] MEDS: ANCEF 1 GM/50 ML D5W IV SCH ×6 (04:00→20:23)
[2020-04-24 04:19] LABS: BASOPHILS % (AUTO) 0.1 % (0.0-2.0); EOSINOPHILS % (AUTO) 0.3 % (0.0-6.0); HEMATOCRIT 34 % (39-51); HEMOGLOBIN 10.9 g/dL (13.5-17.5); LYMPHOCYTES # (AUTO) 0.7 /CMM (0.8-4.8); LYMPHOCYTES % (AUTO) 3.9 % (20.0-44.0); MEAN CORPUSCULAR HGB CONC 32 g/dl (31.0-36.0); MEAN CORPUSCULAR VOLUME 96 fL (80-96); MONOCYTES # (AUTO) 1.1 /CMM (0.1-1.30); MONOCYTES % (AUTO) 5.8 % (2.0-12.0); NEUTROPHILS # (AUTO) 16.6 /CMM (1.8-8.9); NEUTROPHILS % (AUTO) 89.9 % (43.0-81.0); PLATELET COUNT (AUTO) 191 /CMM (150-450); RED BLOOD CELL COUNT(AUTO) 3.54 MIL/uL (4.5-6.0); WHITE BLOOD COUNT (AUTO) 18.5 K/uL (4.3-11.0)
[2020-04-24 04:36] LABS: ALBUMIN 1.7 g/dL (3.4-5.0); ALKALINE PHOSPHATASE 126 U/L (46-116); ASPARTATE AMINOTRANSFERASE 17 U/L (15-37); BILIRUBIN,TOTAL 0.6 mg/dL (0.2-1.0); CALCIUM, SERUM 8.3 mg/dL (8.5-10.1); CARBON DIOXIDE 21 mmol/L (21-32); CHLORIDE 108 mmol/L (98-107); CREATININE 2.1 mg/dL (0.6-1.3); GLUCOSE 184 mg/dL (74-106); MAGNESIUM 2.2 mg/dL (1.8-2.4); PHOSPHORUS 3.2 mg/dL (2.5-4.9); POTASSIUM 4.4 mmol/L (3.5-5.1); SODIUM SERUM 140 mmol/L (136-145); TOTAL PROTEIN, SERUM 6.2 g/dL (6.4-8.2); UREA NITROGEN, BLOOD 41 mg/dL (7-18)
[2020-04-24 04:58] LABS: ALANINE AMINOTRANSFERASE 12 U/L (12-78)
[2020-04-24] MEDS: METRONIDAZOLE 500MG/ NS 100ML 500 MG in PREMIX 1 EA IV SCH ×3 (05:00→21:05)
--- NOTE | 2020-04-24 06:38 | NUR ---
EPIC ANESTHESIA ANALYST CLOSING NOTES: Pt remains on 3L/min NC tolerating well. V pacing on tele monitor. No SOB or respiratory distress noted throughout shift. No acute changes noted throughout shift. Right NGT on low intermittent suction. DEONTE drain to right lower abdomen. All meds administered as ordered. Safety measures in place. Will endorse to AM nurse for MARLO.
[2020-04-24] MEDS: PANTOPRAZOLE 40 MG VIAL IV SCH ×2 (08:35→21:59)
[2020-04-24] MEDS: GABAPENTIN 300 MG CAPSULE PO SCH ×2 (08:35→18:10)
[2020-04-24] MEDS: CARVEDILOL 12.5 MG TABLET PO SCH ×2 (08:36→22:01)
[2020-04-24] MEDS: oxyCODONE/APAP (5/325 MG) 1 UDTAB TABLET PO PRN ×2 (12:32→18:10)
--- NOTE | 2020-04-24 13:25 | NUR ---
Pt remains alert and oriented to self only, confused of time, place and situation, easily reoriented. Follows commands. Pt only speaks German. Was able to remove the wrist restraints after pt was reoriented for safety precautions. Was able to titrate O2 down from 3 LPM/NC to RA. Discontinued NGT, Swallow eval done and was started on pureed diet, tolerating well with ice chips. Gave Percocet for pain, pt was moaning, grimacing and was restless. DEONTE patent and intact, was seen by surgery today, ordered to downgrade to tele. Will give report to telemarketer supervisor.
--- NOTE | 2020-04-24 13:55 | NUR ---
rn notes PATIENT TRANSFER FROM ICU TELE , MONITOR ON SR-72,REPORT GET FROM ICE RN. PATIENT CROATIAN SPEAKER MALE ON ROOM AIR A/O X2/3 REDIRECTABLE. NO ACUTE RESPIRATORY DISTRESS, V/S TAKEN BP 109/56, R-19, P-69, T-97.6, O2-95 ROOM AIR. PATIENT ABDOMEN DISTENDED, INTACT SURGICAL DRESSING, BOWEL SOUNDS FOUR QUADRANT OF ABDOMEN. DEONTE INTACT, MAGANA CATHETER DRAINING LIGHT YELLOW OUTPUT, IV ACCESS ON RIGHT AC INTACT INFUSING ANCEF AT THIS TIME. ASSIST PATIENT TURN AND REPOSTION Q 2 HR, CALL LIGHT WITHIN TO REACH, DVT PUMP ON, KEEP HOB ELEVATED ON 35 DEGREE. CONTINUED MONITORING.
--- NOTE | 2020-04-24 18:10 | NUR ---
RN NOTES PATIENT WAS COMPLAINING OF PAIN GENERALIZED /. ADMINISTERED PERCOCET 5/325 MG PO PRN, AND SCHEDULED MEDICATION, J--58 ML, AND F/C DRAINING 200 ML OF GREENISH OUTPUT, ASSIST PATIENT TURN AND REPOSTION Q2 HR, PATIENT GET ASSIST DINNER VIA SALES MERCHANDISER. CALL LIGHT WITHIN TO REACH. ENDORSED ONCOMING NURSE FOLLOW PLAN OF CARE.
--- NOTE | 2020-04-24 19:05 | NUR ---
RN NOTES: RECEIVED PATIENT ASLEEP ON SHYANNE FOWLERS POSITION, ON SHIPPING CLERK ON SR-70 V-PACING, A/OX1-2 WITH PERIODS OF CONFUSION AND FORGETFULNESS, ABLE TO MAKE NEEDS KNOWN AND FOLLOW DIRECTION, BRUNEIAN SPEAKING ONLY. NO ACUTE RESPIRATORY DISTRESS.ON ROOM AIR SO2-96%, NOTED ABDOMEN IS DISTENDED, INTACT SURGICAL DRESSING, BOWEL SOUNDS FOUR QUADRANT OF ABDOMEN. DEONTE DRAIN INTACT DRAINING IN SEROSANGUINEOUS DRAINAGE , MAGANA CATHETER INTATC, DRAINING INTO LIGHT YELLOWISH URINE AT 100 CC LEVEL, IV ACCESS ON RIGHT AC INTACT. FALL,SAFETY AND ASPIRATION PRECAUTION OBSERVED, KEPT CALL LIGHT WITHIN EASY REACH, ORIENTED TO UNIT AND STAFF. FOR CLOSE WATCH.
[2020-04-24] MEDS: TERAZOSIN HCL 1 MG CAPSULE PO SCH (22:05)
[2020-04-24] MEDS: ACETAMINOPHEN 325 MG TABLET PO PRN (23:52)
--- NOTE | 2020-04-24 23:56 | NUR ---
RN NOTES: CLEAN AND CHANGE, REPOSITIONING DONE AFTER THAT COMPLAINED OF PAIN, OFFERED TYLENOL HE AGREE, NON PHARMACOLOGIC INTERVENTION RENDERED, DIM LIT AND WARM BLANKET GIVEN.
[2020-04-25] VITALS: BP 121/69
[2020-04-25] MEDS: ANCEF 1 GM/50 ML D5W IV SCH ×6 (03:25→20:29)
[2020-04-25 04:00] VITALS: BP 144/69
[2020-04-25] MEDS: METRONIDAZOLE 500MG/ NS 100ML 500 MG in PREMIX 1 EA IV SCH ×3 (04:00→21:11)
[2020-04-25] MEDS: ACETAMINOPHEN 325 MG TABLET PO PRN (05:59)
[2020-04-25 06:00] VITALS: BP 130/70
--- NOTE | 2020-04-25 06:08 | NUR ---
RN NOTES: COMPLAINED OF MILD PAIN PER A JAPANESE SPEAKING STAFF, HE ASK FOR TYLENOL, GIVEN, NON PHARMACOLOGIC INTERVENTION RENDERED.
--- NOTE | 2020-04-25 07:13 | NUR ---
RN NOTES: PATIENT TRYING TO TAKE IN BETWEEN NAP, NO PAIN OR DISCOMFORT AT THIS TIME, KEPT ON CLOSE WATCH, NO LABS FOR TODAY, ABDOMEN STILL DISTENDED, DRAINED 75 ML FROM JAMI BOWDEN DRAIN, TOTAL URINE [id number], NO BM, NO NAUSEA OR VOMITING NOTED,KEPT ON CLOSE WATCH, CALL LIGHT WITHIN EASY REACH, REPOSITIONED.
--- NOTE | 2020-04-25 07:25 | NUR ---
GAS TRANSFER OPERATOR NOTES RECEIVED PT IN BED, ASLEEP, EASILY AROUSED, A/OX 2, WOLOF SPEAKING. PT TOLERATING RA, WITH NO ACUTE RESPIRATORY DISTRESS NOTED. ON TELEMONITORING VPACED 75. PIVS TO RAC G20 AND RFA G22, BOTH FLUSHED WITH NS, INTACT AND OPERATIONAL. DEONTE DRAIN NOTED WELL. FC IN PLACE WITH YELLOW URINE NOTED IN THE BAG. PT KEPT COMFORTABLE. CALL LIGHT KEPT WITHIN REACH. PT'S BED IN LOWEST, LOCKED POSITION WITH SRX3. WILL CONTINUE PLAN OF CARE.
[2020-04-25 08:00] VITALS: BP 145/75
[2020-04-25] MEDS: GABAPENTIN 300 MG CAPSULE PO SCH ×2 (08:18→17:00)
[2020-04-25] MEDS: CARVEDILOL 12.5 MG TABLET PO SCH ×2 (08:18→21:00)
[2020-04-25] MEDS: PANTOPRAZOLE 40 MG VIAL IV SCH (08:18)
--- NOTE | 2020-04-25 11:15 | NUR ---
MS RN NOTES SEEN AND EVALUATED BY DR. PEDROZA. PT PUT ON NPO, ORDERED KUB. WILL CONTINUE PLAN OF CARE.
[2020-04-25 12:37] LABS: BASOPHILS # (AUTO) 0.1 /CMM (0.0-0.2); BASOPHILS % (AUTO) 0.4 % (0.0-2.0); EOSINOPHILS % (AUTO) 0.6 % (0.0-6.0); HEMATOCRIT 35 % (39-51); HEMOGLOBIN 11.3 g/dL (13.5-17.5); LYMPHOCYTES # (AUTO) 0.6 /CMM (0.8-4.8); LYMPHOCYTES % (AUTO) 3.4 % (20.0-44.0); MEAN CORPUSCULAR HGB CONC 32 g/dl (31.0-36.0); MEAN CORPUSCULAR VOLUME 97 fL (80-96); NEUTROPHILS # (AUTO) 17.2 /CMM (1.8-8.9); NEUTROPHILS % (AUTO) 90.6 % (43.0-81.0); PLATELET COUNT (AUTO) 242 /CMM (150-450); RED BLOOD CELL COUNT(AUTO) 3.63 MIL/uL (4.5-6.0)
[2020-04-25 12:53] LABS: ALANINE AMINOTRANSFERASE < 6 U/L (12-78); ALBUMIN 1.8 g/dL (3.4-5.0); ALKALINE PHOSPHATASE 115 U/L (46-116); ASPARTATE AMINOTRANSFERASE 14 U/L (15-37); BILIRUBIN,TOTAL 0.5 mg/dL (0.2-1.0); CALCIUM, SERUM 8.7 mg/dL (8.5-10.1); CARBON DIOXIDE 25 mmol/L (21-32); CHLORIDE 108 mmol/L (98-107); CREATININE 1.8 mg/dL (0.6-1.3); GLUCOSE 223 mg/dL (74-106); SODIUM SERUM 142 mmol/L (136-145); TOTAL PROTEIN, SERUM 6.8 g/dL (6.4-8.2); UREA NITROGEN, BLOOD 35 mg/dL (7-18)
--- NOTE | 2020-04-25 14:13 | NUR ---
MS RN NOTES RN MADE AWARE DR. PEDROZA REGARDING KUB RESULT. ORDERED TO PLACE PICCLINE AND TO START TPN PER PHARMACY DOSING. CHARGE NURSE MADE AWARE WELL. WILL CONTINUE TO MONITOR.
[2020-04-25] MEDS ORDERED: TPN/PPN PER PHARMACY XX PRN (14:30)
--- NOTE | 2020-04-25 15:58 | NUR ---
MS RN NOTES RECEIVED CALL FROM PHARMACY, SPOKE TO GRACY REGARDING TPN ORDER. PER PHARMACY, PT HAS TO BE NPO FOR 5 DAYS BEFORE GIVING TPN. CHARGE NURSE/RADHA INVOLVED. ADVISED TO CALL HOSPITALIST/ED AND TO SPEAK TO DR. PEDROZA HIMSELF. PAGED MD/ED, AWAITING FOR CALL BACK.
[2020-04-25 16:00] VITALS: BP 143/80
--- NOTE | 2020-04-25 16:15 | NUR ---
MS RN NOTES RECEIVED CALL BACK FROM DR. DYER REGARDING TPN ORDER OF DR PEDROZA. TO OVERRIDE PHARMACY PROTOCOL AND TO HAVE PICC LINE INSERTED AND START TPN WHEN AVAILABLE. PT MADE AWARE OF THE PLAN WELL.
[2020-04-25] MEDS ORDERED: DEXTROSE 50%-WATER 50 ML DISP.SYRIN IV PRN (16:30)
[2020-04-25] MEDS ORDERED: TPN BAG #1 IV SCH ×5 (16:30)
--- NOTE | 2020-04-25 16:30 | NUR ---
MS RN NOTES CONSENT FOR PICC LINE PROVIDED BY SON/MAEGAN VIA PHONE, WITNESSED BY ANOTHER RN/ADÁN. PER CHARGE NURSE/RADHA, PICC LINE NURSE WILL BE COMING TONIGHT AT 8PM FOR INSERTION. PHARMACY CALLED AND SPOKE TO GEN MADE AWARE WELL. PT MADE AWARE. WILL ENDORSE TO INCOMING NIGHT NURSE FOR MARLO.
[2020-04-25] MEDS ORDERED: FEE TPN 1 MIN EA MC ONE (16:42)
[2020-04-25] MEDS: BLOOD SUGAR DIAGNOSTIC 1 EACH STRIP IN SCH (17:58)
--- NOTE | 2020-04-25 18:50 | NUR ---
MS RN NOTES PT REMAINS IN BED, INTERMITTENTLY DOZING OFF, EASILY AROUSED, A/OX 2, MALAY SPEAKING. PT TOLERATING RA, WITH NO ACUTE RESPIRATORY DISTRESS NOTED. PIVS TO RAC G20 AND RFA G22, BOTH FLUSHED WITH NS, INTACT AND OPERATIONAL. DEONTE DRAIN NOTED WITH 80ML TOTAL OUTPUT. FC IN PLACE WITH YELLOW URINE NOTED IN THE BAG, 400ML OUTPUT. PT KEPT COMFORTABLE. ALL NEEDS AND CARE ATTENDED. CALL LIGHT KEPT WITHIN REACH. PT'S BED IN LOWEST, LOCKED POSITION WITH SRX3. WILL ENDORSE TO INCOMING NIGHT NURSE FOR MARLO.
--- NOTE | 2020-04-25 19:10 | NUR ---
RN MS OPENING NOTES RECEIVED PATIENT IN BED AWAKE ALERT AND ORIENTED X 2, ABLE TO MAKE SIMPLE NEEDS KNOWN, RESPIRATIONS EVEN AND UNLABORED WITH EQUAL RISE AND FALL OF CHEST, DEONTE DRAIN IN PLACE, NOTED BROWN DRAINAGE IN DEONTE WITH PROPER SUCTION. REMAINS NPO ORDERED BY MD. AWAITING PICC LINE INSERTION AND ARYAN WILL INFUSED TPN ORDERED. ORIENTED TO STAFF AND CALL LIGHT AND KEPT WITHIN REACH, SAFETY PRECAUTIONS IN PLACE, LOW BED AND LOCKED, IV SITE TO RIGHT FA #22 AND RIGHT AC#20 G INTACT AND PATENT, NO REDNESS,NO INFILTRATION, ALL NEEDS ATTENDED AT THIS TIME, CALL LIGHT AND TELEPHONE AT BEDSIDE.
[2020-04-25 20:00] VITALS: BP 153/92
[2020-04-25] MEDS: MORPHINE SULFATE INJ 2 MG/ML DISP.SYRIN IV PRN (20:30)
--- NOTE | 2020-04-25 20:30 | NUR ---
RN MS NOTES PATIENT COMPLAINT OF PAIN TO ABDOMEN AREA STATES 07/23 , REQUESTED PAIN MEDICATION EXPLAINED HE IS NPO AT THIS TIME AND I CAN OFFER HIM MORPHINE FOR HIS PAIN AND RATE AT 07/23 PATIENT AGREED, MORPHINE ORDERED PRN GIVEN ORDERED.
[2020-04-25] MEDS: TERAZOSIN HCL 1 MG CAPSULE PO SCH (21:09)
--- NOTE | 2020-04-25 21:12 | NUR ---
RN MS NOTES PICC LINE INSERTED BY PICCLINE NURSE TO RIGHT UPPER ARM.
--- NOTE | 2020-04-25 21:35 | NUR ---
RN MS NOTES TPN ORDERED STARTED AT THIS TIME VERIFIED ORDERED AND COSIGNED WITH ANOTHER VEHICLE MODIFICATION TECHNICIAN NURSE. INFUSING WELL VIA RIGHT UPPER ARM PICC LINE.
[2020-04-26] MEDS: INSULIN REGULAR, HUMAN 100 UNIT/ML 3 ML VIAL SQ PRN ×5 (00:02→23:48)
[2020-04-26] MEDS ORDERED: MORPHINE SULFATE INJ 4 MG/ML DISP.SYRIN ONE (00:22)
--- NOTE | 2020-04-26 02:12 | NUR ---
RN MS NOTES RETURNED INTACT 5 VIALS OF 4MG/ML MORPHINE INTO PYXIS WRONG PATIENT. WITNESSED WITH ANOTHER RN.
[2020-04-26] MEDS: MORPHINE SULFATE INJ 2 MG/ML DISP.SYRIN IV PRN ×3 (02:50→20:56)
--- NOTE | 2020-04-26 02:52 | NUR ---
RN MS NOTES PATIENT COMPLAINT OF PAIN TO ABDOMEN AREA STATES 07/23 , WHEN HE MOVES HES FEELS THE PAIN STARTS. REQUESTED PAIN MEDICATION EXPLAINED HE IS NPO AT THIS TIME AND I CAN OFFER HIM MORPHINE FOR HIS PAIN AND RATE AT 07/23 PATIENT AGREED, MORPHINE ORDERED PRN GIVEN ORDERED.
[2020-04-26] MEDS: ANCEF 1 GM/50 ML D5W IV SCH ×6 (03:44→20:07)
[2020-04-26] MEDS: METRONIDAZOLE 500MG/ NS 100ML 500 MG in PREMIX 1 EA IV SCH ×3 (05:20→20:57)
[2020-04-26] MEDS: BLOOD SUGAR DIAGNOSTIC 1 EACH STRIP IN SCH ×5 (05:31→23:55)
--- NOTE | 2020-04-26 06:45 | NUR ---
RN MS CLOSING NOTES PATIENT IN BED AWAKE ALERT AND ORIENTED X 2, ABLE TO MAKE SIMPLE NEEDS KNOWN, RESPIRATIONS EVEN AND UNLABORED WITH EQUAL RISE AND FALL OF CHEST, DEONTE DRAIN IN PLACE 75CC OUTPUT BROWN IN COLOR, DEONTE WITH PROPER SUCTION. REMAINS NPO ORDERED BY ABDOMEN REMAINS DISTENDED. INFUSING TPN ORDERED VIA RIGHT UPPER ARM PICC LINE DSG IS C/D/I. CALL LIGHT KEPT WITHIN REACH, SAFETY PRECAUTIONS IN PLACE, LOW BED AND LOCKED, REPOSITIONED Q2HR AND OFFLOADED HEELS, SKIN REMAINS INTACT, IV SITE TO RIGHT FA #22 AND RIGHT AC#20 G INTACT AND PATENT, NO REDNESS,NO INFILTRATION PRESENT , ALL NEEDS ATTENDED AT THIS TIME, CALL LIGHT AND TELEPHONE AT BEDSIDE WILL CONTINUE TO MONITOR AND ENDORSE TO NEXT SHIFT.
[2020-04-26 06:49] LABS: BASOPHILS % (AUTO) 0.3 % (0.0-2.0); EOSINOPHILS % (AUTO) 1.9 % (0.0-6.0); HEMATOCRIT 35 % (39-51); HEMOGLOBIN 10.8 g/dL (13.5-17.5); LYMPHOCYTES # (AUTO) 0.6 /CMM (0.8-4.8); LYMPHOCYTES % (AUTO) 4.6 % (20.0-44.0); MEAN CORPUSCULAR HGB CONC 31 g/dl (31.0-36.0); MEAN CORPUSCULAR VOLUME 97 fL (80-96); MONOCYTES # (AUTO) 0.8 /CMM (0.1-1.30); MONOCYTES % (AUTO) 6.1 % (2.0-12.0); NEUTROPHILS % (AUTO) 87.1 % (43.0-81.0); PLATELET COUNT (AUTO) 227 /CMM (150-450); RED BLOOD CELL COUNT(AUTO) 3.55 MIL/uL (4.5-6.0); WHITE BLOOD COUNT (AUTO) 12.6 K/uL (4.3-11.0)
[2020-04-26 07:00] LABS: ALANINE AMINOTRANSFERASE < 6 U/L (12-78); ALBUMIN 1.7 g/dL (3.4-5.0); ALKALINE PHOSPHATASE 97 U/L (46-116); ASPARTATE AMINOTRANSFERASE 11 U/L (15-37); BILIRUBIN,TOTAL 0.3 mg/dL (0.2-1.0); CALCIUM, SERUM 8.4 mg/dL (8.5-10.1); CARBON DIOXIDE 24 mmol/L (21-32); CHLORIDE 109 mmol/L (98-107); CREATININE 1.7 mg/dL (0.6-1.3); GLUCOSE 250 mg/dL (74-106); POTASSIUM 4.5 mmol/L (3.5-5.1); SODIUM SERUM 140 mmol/L (136-145); TOTAL PROTEIN, SERUM 6.4 g/dL (6.4-8.2); UREA NITROGEN, BLOOD 30 mg/dL (7-18)
--- NOTE | 2020-04-26 07:30 | NUR ---
MS/RN OPENING NOTES RECEIVED PATIENT IN BED AWAKE ALERT AND ORIENTED X 2, ABLE TO MAKE SIMPLE NEEDS KNOWN,NEPALI SPEAKING. RESPIRATIONS EVEN AND UNLABORED. DEONTE DRAIN IN PLACE, WITH PROPER SUCTION SET. IV LUKE PICC IN PLACE RUNNING TPN. ABDOMEN DISTENTION NOTED AND FIRM TO TOUCH. PATIENT IS NPO. CALL LIGHT HAS BEEN PLACED WITHIN REACH, SAFETY PRECAUTIONS IN PLACE, BED PLACED IN LOW POSITION AND LOCKED, WILL CONTINUE TO MONITOR THROUGH OUT SHIFT.
[2020-04-26 08:00] VITALS: BP 140/76
[2020-04-26] MEDS: CARVEDILOL 12.5 MG TABLET PO SCH ×2 (09:00→21:00)
[2020-04-26] MEDS: PANTOPRAZOLE 40 MG TABLET.DR PO SCH (09:00)
[2020-04-26] MEDS: GABAPENTIN 300 MG CAPSULE PO SCH ×2 (09:00→17:00)
[2020-04-26 10:10] LABS: MAGNESIUM 2.2 mg/dL (1.8-2.4); PHOSPHORUS 2.7 mg/dL (2.5-4.9)
[2020-04-26] MEDS ORDERED: TPN BAG #2 IV PRN ×5 (14:00)
[2020-04-26 16:00] VITALS: BP 141/71
[2020-04-26] MEDS ORDERED: FAT EMULSION 20% 500 ML in PREMIX 1 EA IV PRN (18:00)
--- NOTE | 2020-04-26 18:59 | NUR ---
MS/RN CLOSING NOTES PATIENT IS IN BED RESTING, PT IS ALERT AND ORIENTED X 2, ABLE TO MAKE SIMPLE NEEDS KNOWN,SAMMARINESE SPEAKING. RESPIRATIONS EVEN AND UNLABORED. DEONTE DRAIN IN PLACE, WITH PROPER SUCTION SET, DRAINED 85ML DURING SHIFT. IV LUKE PICC IN PLACE RUNNING TPN. ABDOMEN DISTENTION NOTED AND FIRM TO TOUCH. PATIENT IS NPO. CALL LIGHT HAS BEEN PLACED WITHIN REACH, SAFETY PRECAUTIONS IN PLACE, BED PLACED IN LOW POSITION AND LOCKED, WILL ENDORSE CARE TO SHANK SORTER.
--- NOTE | 2020-04-26 19:10 | NUR ---
RN OPENING NOTES: Received pt resting in bed, A&Ox2, Maldivian speaking. On RA tolerating well. No SOB or respiratory distress noted. Pt NPO. LUKE midline patent and flushing w/ TPN infusing at 30ml/hr and lipids at 20ml/hr. RAC #20 patent and flushing. Dressings c/d/i. DEONTE drain on right abdomen. FC patent and draining yellow urine via gravity. Safety measures in place. Will continue to monitor.
[2020-04-26 20:00] VITALS: BP 132/56
[2020-04-26] MEDS: TERAZOSIN HCL 1 MG CAPSULE PO SCH (21:06)
[2020-04-26 21:51] VITALS: BP 132/56
[2020-04-27] MEDS: ANCEF 1 GM/50 ML D5W IV SCH ×6 (03:45→20:45)
[2020-04-27] MEDS: METRONIDAZOLE 500MG/ NS 100ML 500 MG in PREMIX 1 EA IV SCH ×3 (05:23→22:16)
[2020-04-27] MEDS: INSULIN REGULAR, HUMAN 100 UNIT/ML 3 ML VIAL SQ PRN ×4 (05:33→23:53)
[2020-04-27] MEDS: BLOOD SUGAR DIAGNOSTIC 1 EACH STRIP IN SCH ×4 (05:33→23:51)
--- NOTE | 2020-04-27 06:47 | NUR ---
RN CLOSING NOTES: Pt remains on RA. No SOB or respiratory distress noted during shift. No acute changes noted throughout shift. All meds given as ordered. Safety measures in place. Will endorse to AM nurse for MARLO.
[2020-04-27 07:33] LABS: BASOPHILS # (AUTO) 0.1 /CMM (0.0-0.2); BASOPHILS % (AUTO) 0.4 % (0.0-2.0); HEMATOCRIT 36 % (39-51); HEMOGLOBIN 11.4 g/dL (13.5-17.5); LYMPHOCYTES # (AUTO) 0.5 /CMM (0.8-4.8); LYMPHOCYTES % (AUTO) 3.3 % (20.0-44.0); MEAN CORPUSCULAR HGB CONC 32 g/dl (31.0-36.0); MEAN CORPUSCULAR VOLUME 97 fL (80-96); MONOCYTES # (AUTO) 0.7 /CMM (0.1-1.30); MONOCYTES % (AUTO) 4.4 % (2.0-12.0); NEUTROPHILS # (AUTO) 14.9 /CMM (1.8-8.9); NEUTROPHILS % (AUTO) 90.9 % (43.0-81.0); PLATELET COUNT (AUTO) 227 /CMM (150-450); RED BLOOD CELL COUNT(AUTO) 3.67 MIL/uL (4.5-6.0); WHITE BLOOD COUNT (AUTO) 16.3 K/uL (4.3-11.0)
--- NOTE | 2020-04-27 07:35 | NUR ---
MS RN NOTES RECEIVED PT IN BED, AWAKE, A/OX 1-2, CITIZEN OF [place] SPEAKING. PT TOLERATING RA, WITH NO ACUTE RESPIRATORY DISTRESS NOTED. TPN AT 60ML/HR AND LIPIDS AT 20ML/HR TO LUKE TRIPLE LUMEN, INTACT AND OPERATIONAL. DEONTE DRAIN NOTED WELL. FC IN PLACE WITH YELLOW URINE NOTED IN THE BAG. PT KEPT COMFORTABLE. CALL LIGHT KEPT WITHIN REACH. PT'S BED IN LOWEST, LOCKED POSITION WITH SRX3. WILL CONTINUE PLAN OF CARE.
[2020-04-27 07:40] LABS: ALBUMIN 1.7 g/dL (3.4-5.0); ALKALINE PHOSPHATASE 117 U/L (46-116); ASPARTATE AMINOTRANSFERASE 12 U/L (15-37); BILIRUBIN,TOTAL 0.3 mg/dL (0.2-1.0); CALCIUM, SERUM 8.4 mg/dL (8.5-10.1); CARBON DIOXIDE 26 mmol/L (21-32); CHLORIDE 110 mmol/L (98-107); CREATININE 1.5 mg/dL (0.6-1.3); GLUCOSE 250 mg/dL (74-106); PHOSPHORUS 1.9 mg/dL (2.5-4.9); POTASSIUM 4.3 mmol/L (3.5-5.1); SODIUM SERUM 141 mmol/L (136-145); TOTAL PROTEIN, SERUM 6.2 g/dL (6.4-8.2); UREA NITROGEN, BLOOD 27 mg/dL (7-18)
[2020-04-27 07:41] LABS: ALANINE AMINOTRANSFERASE < 6 U/L (12-78)
[2020-04-27 08:00] VITALS: BP 131/67
[2020-04-27] MEDS: CARVEDILOL 12.5 MG TABLET PO SCH ×2 (08:48→22:09)
[2020-04-27] MEDS: PANTOPRAZOLE 40 MG TABLET.DR PO SCH (08:48)
[2020-04-27] MEDS: GABAPENTIN 300 MG CAPSULE PO SCH ×2 (08:48→17:15)
--- NOTE | 2020-04-27 10:22 | NUR ---
MS RN NOTES SEEN AND EVALUATED BY DR. DYER. MADE AWARE PT DOESN'T HAVE BM YET. ABD STILL DISTENDED. ORDERED KUB, AND NEEDS TO F/U WITH DR. PEDROZA WITH THE RESULT PER . WILL CONTINUE PLAN OF CARE.
[2020-04-27] MEDS ORDERED: Sodium Phosphate 15 MMOL in IV NS 0.9% 245 ML IV SCH (13:00)
--- NOTE | 2020-04-27 15:17 | NUR ---
MS RN NOTES RECEIVED RESPONSE BACK FROM . ORDERED TO GIVE DULCOLAX PO ONCE WITH CLEAR LIQUID/SIPS OF WATER FOR NOW. AND SEE HOW IT GOES BEFORE HE DECIDES TO START DIET. AND OKAY TO DISCONTINUE MAGANA CATH. WILL CONTINUE TO MONITOR.
[2020-04-27] MEDS ORDERED: BISACODYL (5 MG) 5 MG TABLET.DR PO ONE (15:30)
--- NOTE | 2020-04-27 15:37 | NUR ---
MS RN NOTES NURSING SWALLOW TEST DONE, PT ABLE TO SWALLOW THIN LIQUIDS WITH APPLESAUCE. ALSO, ABLE TO SWALLOW DULCOLAX PO, PER DR. PEDROZA'S ORDER, RN NOTIFIED HIM WELL. WILL CONTINUE TO MONITOR.
--- NOTE | 2020-04-27 15:39 | NUR ---
MS RN NOTES REMOVED MAGANA CATH, EMPTIED 250ML CLEAR YELLOW URINE.
[2020-04-27 16:00] VITALS: BP 137/70
[2020-04-27] MEDS ORDERED: TPN BAG#3 IV PRN ×2 (16:00)
--- NOTE | 2020-04-27 16:00 | NUR ---
MS RN NOTES VERIFIED WITH . ORDERED TO START ON CLEAR LIQUIDS AND KEEP TPN AND LIPDS THROUGH PICCLINE. PT MADE AWARE. WILL CONTINUE TO MONITOR.
--- NOTE | 2020-04-27 16:54 | NUR ---
MS RN NOTES INTERNET SALES REPRESENTATIVE AND ID/DEPUTY DIRECTOR/SHILA REPORTED PICCLINE GOT PULLED. CHARGE NURSE MADE AWARE, INFORMED TO NURSING LABORER GOLD LEAF/DONELL FOR REINSERTION. AWAITING FOR AVAILABLE NURSE TO INSERT. HELD TPN AND LIPIDS. WILL CONTINUE TO MONITOR.
--- NOTE | 2020-04-27 18:50 | NUR ---
MS RN NOTES PT REMAINS IN BED, AWAKE, A/OX 1-2, BELGIAN SPEAKING. PT TOLERATING RA, WITH NO ACUTE RESPIRATORY DISTRESS NOTED. NO IV ACCESS AT THIS TIME, PICC LINE NURSE TO INSERT AT 7PM. DEONTE DRAIN EMPTIED WITH 40ML. PT KEPT COMFORTABLE. ALL NEEDS AND CARE ATTENDED. CALL LIGHT KEPT WITHIN REACH. PT'S BED IN LOWEST, LOCKED POSITION WITH SRX3. WILL ENDORSE TO INCOMING NIGHT NURSE FOR MARLO.
--- NOTE | 2020-04-27 19:21 | NUR ---
MS RN NOTES CALLED MULTIPLE TIMES SON/MAEGAN AND FAITH/SPOUSE, RINGING BUT WILL GET BUSY TONE AFTER FEW RINGS. WITNESSED BY ANOTHER RN/RUBEN. ENDORSED TO KSENIA/LUCIA.
--- NOTE | 2020-04-27 19:30 | NUR ---
MS/RN OPENING NOTES: RECEIVED PATIENT IN BED, AWAKE, A/OX 1-2, HAS EPISODES OF CONFUSION AND FORGETFULNESS. CONGOLESE SPEAKING ONLY. NO SOB NOTED. TOLERATING RA, WITH NO ACUTE RESPIRATORY DISTRESS NOTED. NO IV LINE NOTED, NO PICC LINE NOTED. PER DAY SHIFT RN, "PT IS SCHEDULED FOR A NEW PICC LINE REINSERTION WITH JANETH MEDINA". DEONTE DRAIN NOTED WELL DRAINING BROWN OUTPUT. CALL LIGHT KEPT WITHIN REACH. PT'S BED IN LOWEST, LOCKED POSITION WITH SRX3. WILL CONTINUE PLAN OF CARE AND MONITOR PT. ACCORDINGLY.
[2020-04-27 20:00] VITALS: BP 133/64
--- NOTE | 2020-04-27 20:05 | NUR ---
MS/RN NOTES: JANETH MEDINA AT BEDSIDE FOR PICC LINE REINSERTION. KAMLESH DAMICO AT BEDSIDE TO HELP TRANSLATE. NEW PICC LINE INSERTED ON THE RIGHT UPPER ARM SUCCESSFULLY. INTACT, PATENT AND FLUSHING WELL. TPN IS CONNECTED AND RUNNING AT 60MLS/HR. LIPIDS RUNNING AT 20MLS/HR. PT IS STABLE AT THIS TIME. NO C/O PAIN. WILL CONTINUE TO MONITOR.
[2020-04-27] MEDS: TERAZOSIN HCL 1 MG CAPSULE PO SCH (22:08)
--- NOTE | 2020-04-28 | NUR ---
MS/RN NOTES: ACCU CHECK 153. ADMINISTERED 2 UNITS OF REG. INSULIN PER SLIDING SCALE. TPN INFUSING AT 60MLS/HR. WILL CONTINUE TO MONITOR ACCORDINGLY.
[2020-04-28] MEDS: ANCEF 1 GM/50 ML D5W IV SCH ×6 (04:15→20:50)
[2020-04-28] MEDS: METRONIDAZOLE 500MG/ NS 100ML 500 MG in PREMIX 1 EA IV SCH ×3 (04:53→21:42)
[2020-04-28] MEDS: BLOOD SUGAR DIAGNOSTIC 1 EACH STRIP IN SCH ×4 (06:04→23:08)
[2020-04-28] MEDS: INSULIN REGULAR, HUMAN 100 UNIT/ML 3 ML VIAL SQ PRN ×4 (06:05→23:10)
--- NOTE | 2020-04-28 06:07 | NUR ---
MS/RN NOTES: ACCUCHECK 219. ADMINISTERED 8 UNITS OF REG. INSULIN PER SLIDING SCALE. TPN RUNNING AT 60MLS/HR. WILL CONTINUE TO MONITOR.
[2020-04-28 06:38] LABS: BASOPHILS % (AUTO) 0.2 % (0.0-2.0); EOSINOPHILS % (AUTO) 0.4 % (0.0-6.0); HEMATOCRIT 35 % (39-51); HEMOGLOBIN 10.9 g/dL (13.5-17.5); LYMPHOCYTES # (AUTO) 0.8 /CMM (0.8-4.8); LYMPHOCYTES % (AUTO) 4.4 % (20.0-44.0); MEAN CORPUSCULAR HGB CONC 32 g/dl (31.0-36.0); MEAN CORPUSCULAR VOLUME 97 fL (80-96); MONOCYTES # (AUTO) 0.9 /CMM (0.1-1.30); MONOCYTES % (AUTO) 5.3 % (2.0-12.0); NEUTROPHILS # (AUTO) 15.6 /CMM (1.8-8.9); NEUTROPHILS % (AUTO) 89.7 % (43.0-81.0); PLATELET COUNT (AUTO) 213 /CMM (150-450); RED BLOOD CELL COUNT(AUTO) 3.57 MIL/uL (4.5-6.0); WHITE BLOOD COUNT (AUTO) 17.4 K/uL (4.3-11.0)
--- NOTE | 2020-04-28 06:44 | NUR ---
MS/RN CLOSING NOTES: RECEIVED PATIENT IN BED, AWAKE, A/OX 1-2, MACANESE SPEAKING ONLY. NO SIGNIFICANT CHANGES IN CONDITION. NO SOB NOTED. TOLERATING RA, WITH NO ACUTE RESPIRATORY DISTRESS NOTED. NO C/O PAIN AT THIS TIME. PICC LINE PRESENT ON LUKE, INTACT, PATENT AND FLUSHING WELL. TPN RUNNING AT 60MLS/HR. DEONTE DRAIN NOTED DRAINING SEMI-THICK DARK BROWN OUTPUT WITH TOTAL OF 45MLS. CALL LIGHT KEPT WITHIN REACH. PT'S BED IN LOWEST, LOCKED POSITION WITH SRX3. ALL NURSING NEEDS MET AND RENDERED. WILL ENDORSE TO DAY SHIFT FOR MARLO.
[2020-04-28 07:13] LABS: ALANINE AMINOTRANSFERASE 6 U/L (12-78); ALBUMIN 1.7 g/dL (3.4-5.0); ALKALINE PHOSPHATASE 101 U/L (46-116); ASPARTATE AMINOTRANSFERASE 14 U/L (15-37); BILIRUBIN,TOTAL 0.4 mg/dL (0.2-1.0); CALCIUM, SERUM 8.3 mg/dL (8.5-10.1); CARBON DIOXIDE 25 mmol/L (21-32); CHLORIDE 109 mmol/L (98-107); CREATININE 1.5 mg/dL (0.6-1.3); GLUCOSE 252 mg/dL (74-106); MAGNESIUM 1.9 mg/dL (1.8-2.4); PHOSPHORUS 2.5 mg/dL (2.5-4.9); POTASSIUM 4.3 mmol/L (3.5-5.1); SODIUM SERUM 141 mmol/L (136-145); TOTAL PROTEIN, SERUM 6.4 g/dL (6.4-8.2); UREA NITROGEN, BLOOD 28 mg/dL (7-18)
--- NOTE | 2020-04-28 07:25 | NUR ---
MS RN NOTES RECEIVED PT IN BED, AWAKE, A/OX 1-2, FRENCH SPEAKING. PT TOLERATING RA, WITH NO ACUTE RESPIRATORY DISTRESS NOTED. TPN AT 60ML/HR TO LUKE TRIPLE LUMEN, INTACT AND OPERATIONAL. DEONTE DRAIN NOTED WELL. PT KEPT COMFORTABLE. CALL LIGHT KEPT WITHIN REACH. PT'S BED IN LOWEST, LOCKED POSITION WITH SRX3. WILL CONTINUE PLAN OF CARE.
[2020-04-28 08:00] VITALS: BP 138/64
[2020-04-28] MEDS: PANTOPRAZOLE 40 MG TABLET.DR PO SCH (08:37)
[2020-04-28] MEDS: CARVEDILOL 12.5 MG TABLET PO SCH ×2 (08:37→21:00)
[2020-04-28] MEDS: GABAPENTIN 300 MG CAPSULE PO SCH ×2 (08:37→16:49)
[2020-04-28] MEDS ORDERED: BISACODYL (5 MG) 5 MG TABLET.DR PO ONE (09:30)
--- NOTE | 2020-04-28 10:02 | NUR ---
MS RN NOTES DURING ROUNDS OF MD/ED PT VOMITED X1 WITH BROWN-COLORED EMESIS WITH 150ML, MD ORDERED TO KEEP PT NPO. ZOFRAN 4MG IV GIVEN AT 0951. NOTIFIED DR. PEDROZA/SURGEON WELL, NO FURTHER ORDERS NOTED. WILL CONTINUE TO MONITOR PT.
[2020-04-28] MEDS ORDERED: TPN BAG #4 IV PRN ×5 (12:00)
[2020-04-28] MEDS ORDERED: TPN ABG IV PRN ×3 (12:00)
--- NOTE | 2020-04-28 13:43 | NUR ---
MS RN NOTES PT ENCOURAGED MULTIPLE TIMES REGARDING RISKS ND BENEFITS OF NGT INSERTION. BUT INSIST TO REFUSE AT THIS TIME. WILL CONTINUE TO MONITOR.
--- NOTE | 2020-04-28 16:49 | NUR ---
MS RN NOTES STAT KUB DONE, AWAITING FOR RESULT TO VEFIFY NGT PLACEMENT. WILL CONTINUE TO MONITOR PT.
[2020-04-28] MEDS: FAT EMULSION 20% 500 ML in PREMIX 1 EA IV SCH (17:09)
--- NOTE | 2020-04-28 17:11 | NUR ---
MS RN NOTES RECEIVED CALL FROM RADIOLOGIST REGARDING NGT PLACEMENT. NGT ON THE RIGHT BRONCHUS. NGT REMOVED RIGHT AWAY. WILL CONTINUE TO MONITOR PT.
--- NOTE | 2020-04-28 17:22 | NUR ---
MS RN NOTES PT NOT IN DISTRESS. HOB ELEVATED. WILL TRY TO REINSERT IN A WHILE. WILL CONTINUE TO MONITOR.
--- NOTE | 2020-04-28 18:13 | NUR ---
MS RN NOTES NGT PLACED TO LEFT NARES, ORDERED STAT KUB, AWAITING FOR RESULT. WILL CONTINUE TO MONITOR.
--- NOTE | 2020-04-28 18:46 | NUR ---
MS RN NOTES PT REMAINS IN BED, AWAKE, A/OX 1-2, FAROESE SPEAKING. PT TOLERATING RA, WITH NO ACUTE RESPIRATORY DISTRESS NOTED. NGT PLACED TO LEFT NARES, AWAITING FOR KUB RESULT TO VERIFY PLACEMENT. TPN AT 60ML/HR AND LIPIDS 20ML/HR TO LUKE DOUBLE LUMEN, INTACT AND OPERATIONAL. DEONTE DRAIN NOTED, OUTPUT OF 30ML. ALL NEEDS AND CARE ATTENDED. PT KEPT COMFORTABLE. CALL LIGHT KEPT WITHIN REACH. PT'S BED IN LOWEST, LOCKED POSITION WITH SRX3. WILL ENDORSE TO INCOMING NIGHT NURSE FOR MARLO.
--- NOTE | 2020-04-28 19:20 | NUR ---
MS/RN OPENING NOTES: RECEIVED PATIENT IN BED, AWAKE, A/OX 2, HAS EPISODES OF CONFUSION AND FORGETFULNESS. GERMAN SPEAKING ONLY. NO SOB NOTED. TOLERATING RA, WITH NO ACUTE RESPIRATORY DISTRESS NOTED. PICC LINE ON THE LUKE PRESENT. DEONTE DRAIN NOTED WELL DRAINING BROWN OUTPUT. NG TUBE NOTED CONNECTED TO LOW INTERMITTENT SUCTION ORDERED, DRAINING BROWN OUTPUT. CALL LIGHT KEPT WITHIN REACH. PT'S BED IN LOWEST, LOCKED POSITION WITH SRX3. WILL CONTINUE PLAN OF CARE AND MONITOR PT. ACCORDINGLY.
--- NOTE | 2020-04-28 19:25 | NUR ---
MS/RN NOTES: TPN AT 60ML/HR AND LIPIDS 20ML/HR TO LUKE DOUBLE LUMEN, INTACT AND OPERATIONAL.
[2020-04-28 20:00] VITALS: BP 138/72
[2020-04-28] MEDS: TERAZOSIN HCL 1 MG CAPSULE PO SCH (21:37)
--- NOTE | 2020-04-28 23:08 | NUR ---
MS/RN NOTES: TPN BAG CHANGED AND COSIGNED WITH LUCIA GARCIA. NOW RUNNING AT 65MLS/HR. LIPIDS STILL RUNNING AT 20MLS/HR. ACCU CHECK OF 214. 8UNITS OF INSULIN REG. GIVEN PER SLIDING SCALE. PT STABLE. WILL CONTINUE TO MONITOR ACCORDINGLY.
[2020-04-29] MEDS: ANCEF 1 GM/50 ML D5W IV SCH ×4 (04:03→11:00)
[2020-04-29] MEDS: METRONIDAZOLE 500MG/ NS 100ML 500 MG in PREMIX 1 EA IV SCH ×3 (05:01→21:23)
[2020-04-29] MEDS: BLOOD SUGAR DIAGNOSTIC 1 EACH STRIP IN SCH ×3 (05:20→17:55)
[2020-04-29] MEDS: INSULIN REGULAR, HUMAN 100 UNIT/ML 3 ML VIAL SQ PRN ×3 (05:24→17:56)
--- NOTE | 2020-04-29 05:30 | NUR ---
MS/RN NOTES: ACCUCHECK 223. 8 UNITS ADMINISTERED REG. INSULIN PER SLIDING SCALE. PT. STABLE. TPN INFUSING AT 65MLS/HR. LIPIDS RUNNING AT 20MLS/HR. WILL CONTINUE TO MONITOR.
[2020-04-29 06:56] LABS: BASOPHILS % (AUTO) 0.1 % (0.0-2.0); EOSINOPHILS % (AUTO) 0.3 % (0.0-6.0); HEMATOCRIT 35 % (39-51); HEMOGLOBIN 11.1 g/dL (13.5-17.5); LYMPHOCYTES # (AUTO) 0.7 /CMM (0.8-4.8); LYMPHOCYTES % (AUTO) 3.2 % (20.0-44.0); MEAN CORPUSCULAR HGB CONC 32 g/dl (31.0-36.0); MEAN CORPUSCULAR VOLUME 98 fL (80-96); MONOCYTES # (AUTO) 0.9 /CMM (0.1-1.30); MONOCYTES % (AUTO) 3.9 % (2.0-12.0); NEUTROPHILS # (AUTO) 20.3 /CMM (1.8-8.9); NEUTROPHILS % (AUTO) 92.5 % (43.0-81.0); PLATELET COUNT (AUTO) 189 /CMM (150-450); RED BLOOD CELL COUNT(AUTO) 3.57 MIL/uL (4.5-6.0); WHITE BLOOD COUNT (AUTO) 21.9 K/uL (4.3-11.0)
[2020-04-29 07:15] LABS: ALANINE AMINOTRANSFERASE 7 U/L (12-78); ALBUMIN 1.7 g/dL (3.4-5.0); ALKALINE PHOSPHATASE 97 U/L (46-116); ASPARTATE AMINOTRANSFERASE 17 U/L (15-37); BILIRUBIN,TOTAL 0.3 mg/dL (0.2-1.0); CALCIUM, SERUM 8.4 mg/dL (8.5-10.1); CARBON DIOXIDE 23 mmol/L (21-32); CHLORIDE 106 mmol/L (98-107); CREATININE 1.6 mg/dL (0.6-1.3); GLUCOSE 224 mg/dL (74-106); MAGNESIUM 1.9 mg/dL (1.8-2.4); PHOSPHORUS 2.5 mg/dL (2.5-4.9); POTASSIUM 3.9 mmol/L (3.5-5.1); SODIUM SERUM 138 mmol/L (136-145); TOTAL PROTEIN, SERUM 6.6 g/dL (6.4-8.2); UREA NITROGEN, BLOOD 33 mg/dL (7-18)
--- NOTE | 2020-04-29 07:25 | NUR ---
MS/RN CLOSING NOTES: RECEIVED PATIENT IN BED, AWAKE, A/OX 2, [place] SPEAKING ONLY. NO SIGNIFICANT CHANGES IN CONDITION. NO SOB NOTED. TOLERATING RA, WITH NO ACUTE RESPIRATORY DISTRESS NOTED. NO C/O PAIN AT THIS TIME. PICC LINE PRESENT ON LUKE, INTACT, PATENT AND FLUSHING WELL. TPN RUNNING AT 65MLS/HR. DEONTE DRAIN NOTED DRAINING SEMI-THICK DARK BROWN OUTPUT WITH TOTAL OF 20MLS. NG TUBE SECRETIONS TOTAL OF 600ML. CALL LIGHT KEPT WITHIN REACH. PT'S BED IN LOWEST, LOCKED POSITION WITH SRX3. ALL NURSING NEEDS MET AND RENDERED. WILL ENDORSE TO DAY SHIFT FOR MARLO.
--- NOTE | 2020-04-29 07:58 | NUR ---
RN OPENING NOTE Patient is resting in bed, A/O x1-2, showing no signs of acute distress or SOB, stable on RA. NGT noted in the left nare on low intermittent suction. DEONTE drain noted on the right lower quadrant. LUKE PICC line noted running TPN @ 65mls/hr and Lipids @ 20mls/hr. BEd is in lowest position, side rails x3 in upright position, call light is within reach. Sitter at the bedside. Fall safety and aspiration precautions enforced. Will continue with plan of care.
[2020-04-29 08:00] VITALS: BP 137/61
[2020-04-29] MEDS ORDERED: TPN BAG #5 IV PRN ×3 (08:50)
[2020-04-29] MEDS: GABAPENTIN 300 MG CAPSULE PO SCH ×2 (09:00→16:06)
[2020-04-29] MEDS: PANTOPRAZOLE 40 MG TABLET.DR PO SCH (09:00)
[2020-04-29] MEDS: CARVEDILOL 12.5 MG TABLET PO SCH ×2 (09:00→21:00)
[2020-04-29] MEDS ORDERED: TPN BAG #6 IV PRN ×10 (09:00)
--- NOTE | 2020-04-29 10:04 | NUR ---
RN NOTE Received T.O order from Dr. Worthy: - CXR - CBC IN AM - REGLAN 10MG IV [id number] Orders repeated back and will carry out.
[2020-04-29] MEDS: METOCLOPRAMIDE HCL 10 MG/2 ML VIAL IV SCH ×3 (10:27→23:50)
[2020-04-29] MEDS: MORPHINE SULFATE INJ 2 MG/ML DISP.SYRIN IV PRN (10:27)
[2020-04-29] MEDS ORDERED: DEXTROSE 50%-WATER 50 ML DISP.SYRIN IV PRN (11:30)
[2020-04-29 16:00] VITALS: BP 148/71
[2020-04-29] MEDS: CEFTRIAXONE 1 G in IV D5W 50 ML IV SCH (17:43)
--- NOTE | 2020-04-29 19:18 | NUR ---
RN CLOSING NOTE Patient is resting in bed, A/O x1-2, showing no signs of acute distress or SOB, stable on RA. NGT noted in the left nare on low intermittent suction total output 10ml this shift. DEONTE drain noted on the right lower quadrant total output 5 ml this shift. LUKE PICC line noted running TPN @ 65mls/hr. All patient needs met, all due medications given, patient kept clean and dry throughout shift. Bed is in lowest position, side rails x3 in upright position, call light is within reach. Sitter at the bedside. Fall safety and aspiration precautions enforced. Will endorse to scene shifter.
--- NOTE | 2020-04-29 19:45 | NUR ---
MS RN NOTES RECEIVED ON BED A/O X2-3,SPEAK PASHTO.S/P LAP TIFFANY WITH REPAIR.DRESSING INTACT AND DRY.WITH NGT IN PLACE DRAINING BROWNISH COLOR,ABDOMEN DISTENDED BUT SOFT.HOB ELEVATED.ON TPN AT 65ML/HR RATE,NPO STATUS.DVT PUMP IN USED FOR DVT PROPHYLAXIS.CALL LIGHT IN REACH,NEEDS ANTICIPATED.
[2020-04-29 20:00] VITALS: BP 137/61
[2020-04-29] MEDS: TERAZOSIN HCL 1 MG CAPSULE PO SCH (21:22)
--- NOTE | 2020-04-29 22:30 | NUR ---
MS RN NOTES PATIENT PULLED NGT DESPITE EXPLANATIONS FOR HAVING IT,ADVISED THAT NURSE WILL PUT NEW ONE BUT REFUSED AND MAD.
--- NOTE | 2020-04-29 23:45 | NUR ---
MS RN NOTES HOSPITALIST SHAUN MADE AWARE,SAYS "I'D RECOMMEND PUTTING ANOTHER ONE IN BUT DOESNT LIKE IT WILL HAPPEN".PATIENT REFUSED AND MAD TO HAVE ANOTHER ONE IT RECOMMENDED BY RN ASSIGNED EARLIER.
--- NOTE | 2020-04-30 | NUR ---
MS RN NOTES ACCU-CHECK BLOOD SUGAR CHECK 159,2 UNITS HUMULIN R HELD,NPO STATUS.
[2020-04-30] MEDS: INSULIN REGULAR, HUMAN 100 UNIT/ML 3 ML VIAL SQ PRN ×4 (00:05→18:31)
[2020-04-30] MEDS: MORPHINE SULFATE INJ 2 MG/ML DISP.SYRIN IV PRN ×3 (00:45→23:20)
--- NOTE | 2020-04-30 00:45 | NUR ---
MS RN NOTES PAIN MANAGEMENT NOTED FACIAL GRIMACE,MEDICATED WITH MORPHINE 2MG IV ORDERED.
--- NOTE | 2020-04-30 03:00 | NUR ---
MS RN NOTES SOUND ASLEEP,KEPT WARM AND COMFORTABLE.
[2020-04-30] MEDS: METOCLOPRAMIDE HCL 10 MG/2 ML VIAL IV SCH ×4 (05:01→22:39)
[2020-04-30] MEDS: METRONIDAZOLE 500MG/ NS 100ML 500 MG in PREMIX 1 EA IV SCH ×3 (05:02→21:08)
--- NOTE | 2020-04-30 06:00 | NUR ---
MS RN NOTES ACCU-CHECK BLOOD SUGAR CHECK 179,HUMULIN 3 UNITS HELD DUE TO NPO STATUS.
[2020-04-30] MEDS: BLOOD SUGAR DIAGNOSTIC 1 EACH STRIP IN SCH ×4 (06:12→18:29)
--- NOTE | 2020-04-30 06:49 | NUR ---
MS RN NOTES SLEPT WELL AT NIGHT,OFFERED AGAIN TO PUT NGT BUT REFUSED AND GET MAD.ABDOMEN REMAINS DISTENDED BUT SOFT.REFUSED DVT PUMP LAST NIGHT,CANT SLEEP.TPN IN PROGRESS,NO DISTRESS.KEPT NPO ORDER,WILL ENDORSE TO DAY NURSE FOR MARLO.
[2020-04-30 08:00] VITALS: BP 147/74
[2020-04-30 08:06] LABS: BASOPHILS % (AUTO) 0.2 % (0.0-2.0); EOSINOPHILS % (AUTO) 0.3 % (0.0-6.0); HEMATOCRIT 30 % (39-51); HEMOGLOBIN 9.7 g/dL (13.5-17.5); LYMPHOCYTES # (AUTO) 0.8 /CMM (0.8-4.8); LYMPHOCYTES % (AUTO) 3.9 % (20.0-44.0); MEAN CORPUSCULAR HGB CONC 32 g/dl (31.0-36.0); MEAN CORPUSCULAR VOLUME 96 fL (80-96); MONOCYTES # (AUTO) 1.2 /CMM (0.1-1.30); MONOCYTES % (AUTO) 5.9 % (2.0-12.0); NEUTROPHILS # (AUTO) 18.1 /CMM (1.8-8.9); NEUTROPHILS % (AUTO) 89.7 % (43.0-81.0); PLATELET COUNT (AUTO) 194 /CMM (150-450); RED BLOOD CELL COUNT(AUTO) 3.14 MIL/uL (4.5-6.0); WHITE BLOOD COUNT (AUTO) 20.2 K/uL (4.3-11.0)
[2020-04-30 08:33] LABS: CALCIUM, SERUM 8.2 mg/dL (8.5-10.1); CARBON DIOXIDE 23 mmol/L (21-32); CHLORIDE 106 mmol/L (98-107); CREATININE 1.4 mg/dL (0.6-1.3); GLUCOSE 217 mg/dL (74-106); MAGNESIUM 1.7 mg/dL (1.8-2.4); PHOSPHORUS 2.3 mg/dL (2.5-4.9); POTASSIUM 3.9 mmol/L (3.5-5.1); SODIUM SERUM 137 mmol/L (136-145); UREA NITROGEN, BLOOD 32 mg/dL (7-18)
[2020-04-30] MEDS: PANTOPRAZOLE 40 MG TABLET.DR PO SCH (09:00)
[2020-04-30] MEDS: GABAPENTIN 300 MG CAPSULE PO SCH ×2 (09:00→16:19)
[2020-04-30] MEDS: CARVEDILOL 12.5 MG TABLET PO SCH ×2 (09:00→21:00)
[2020-04-30] MEDS ORDERED: TPN BAG #6 IV PRN ×8 (11:18)
[2020-04-30] MEDS ORDERED: TPN BAG #7 IV PRN ×8 (11:30)
[2020-04-30 16:00] VITALS: BP 142/62
--- NOTE | 2020-04-30 17:30 | NUR ---
MS RN NOTE SUCTIONED PATIENT, OBTAINED SMALL YELLOW GREEN THICK SECRETIONS. OBSERVED PATIENT WITH EPISODE OF DIFFICULTY COUGHING UP SECRETIONS.
[2020-04-30] MEDS: FAT EMULSION 20% 500 ML in PREMIX 1 EA IV SCH (18:18)
[2020-04-30] MEDS: CEFTRIAXONE 1 G in IV D5W 50 ML IV SCH (18:18)
--- NOTE | 2020-04-30 18:55 | NUR ---
MS RN NOTES PATIENT RESTING COMFORTABLY IN BED. HOB ELEVATED. NO S/S OF RESPIRATORY DISTRESS. PATIENT CONTINUES TO REFUSE NGT INSERTION DESPITE OF EXPLANATIONS OF RISKS AND BENEFITS. ABD DISTENTION STILL NOTED WITH DEONTE DRAIN INTACT AND PATENT WITH 5ML BROWN OUTPUT OBSERVED WITH DRESSING INTACT. REMAINS NPO. ON TPN AT 65ML/HR AND LIP[IDS AT 20 ML/HR SUNSHINE WELL TO RIGHT UPPER ARM PICC LINE, INTACT AND PATENT. BED IN LOWEST POSITION, LOCKED. BED ALARM ON. ABLE TO VERBALIZE NEEDS. CALL LIGHT WITHIN REACH, IN NO APPARENT DISTRESS.
--- NOTE | 2020-04-30 19:50 | NUR ---
MS RN NOTES RECEIVED ON BED A/O X1-2.SPEAK MALTESE,O2 AT 3L/NC IN USED,NOTED PATIENT WITH PRODUCTIVE COUGH.TPN AND LIPIDS INFUSING VIA IV PUMP.S/P LAP TIFFANY,DRESSING INTACT AND DRY.WITH DEONTE DRAIN ON THE ABDOMEN DRAINING BROWNISH OUTPUT.DVT PUMP IN USED FOR DVT PROPHYLAXIS.CALL LIGHT IN REACH,NEEDS ANTICIPATED.
[2020-04-30 20:00] VITALS: BP 143/71
[2020-04-30] MEDS ORDERED: IPRATROPIUM NEB FS 0.5 MG/2.5 ML AMPUL.NEB NEB PRN (20:00)
[2020-04-30] MEDS ORDERED: ALBUTEROL FS 2.5 MG/3 ML VIAL.NEB NEB PRN (20:00)
[2020-04-30] MEDS: IPRATROPIUM NEB FS 0.5 MG/2.5 ML AMPUL.NEB NEB SCH (20:18)
[2020-04-30] MEDS: ALBUTEROL FS 2.5 MG/3 ML VIAL.NEB NEB SCH (20:18)
[2020-04-30] MEDS: TERAZOSIN HCL 1 MG CAPSULE PO SCH (21:28)
--- NOTE | 2020-04-30 23:20 | NUR ---
MS RN NOTES PAIN MANAGEMENT C/O ABDOMINAL PAIN,MORPHINE 2MG IV GIVEN ORDERED.
--- NOTE | 2020-05-01 00:15 | NUR ---
MS RN NOTES ACCU-CHECK BLOOD SUGAR CHECK 157,2 UNITS HUMULIN R HELD,NPO STATUS
[2020-05-01] MEDS: BLOOD SUGAR DIAGNOSTIC 1 EACH STRIP IN SCH ×4 (00:41→18:25)
[2020-05-01] MEDS: INSULIN REGULAR, HUMAN 100 UNIT/ML 3 ML VIAL SQ PRN ×4 (00:42→18:33)
[2020-05-01] MEDS: IPRATROPIUM NEB FS 0.5 MG/2.5 ML AMPUL.NEB NEB SCH ×4 (01:46→20:13)
[2020-05-01] MEDS: ALBUTEROL FS 2.5 MG/3 ML VIAL.NEB NEB SCH ×4 (01:46→20:13)
[2020-05-01] MEDS: METOCLOPRAMIDE HCL 10 MG/2 ML VIAL IV SCH ×3 (04:53→17:23)
[2020-05-01] MEDS: METRONIDAZOLE 500MG/ NS 100ML 500 MG in PREMIX 1 EA IV SCH ×3 (04:53→21:46)
--- NOTE | 2020-05-01 06:41 | NUR ---
MS RN NOTES SLEPT WITH INTERVALS,ABDOMEN DISTENDED BUT SOFT,TPN/LIPIDS IN PROGRESS.REMAINS NPO ORDERED.IN NO ACUTE DISTRESS.
[2020-05-01 07:41] LABS: CALCIUM, SERUM 8.1 mg/dL (8.5-10.1); CREATININE 1.3 mg/dL (0.6-1.3); MAGNESIUM 2.2 mg/dL (1.8-2.4); PHOSPHORUS 2.3 mg/dL (2.5-4.9); POTASSIUM 3.9 mmol/L (3.5-5.1)
[2020-05-01] MEDS: MORPHINE SULFATE INJ 2 MG/ML DISP.SYRIN IV PRN ×2 (07:41→15:05)
[2020-05-01 08:00] VITALS: BP 155/73
[2020-05-01] MEDS ORDERED: TPN BAG #9 IV PRN ×12 (08:30)
[2020-05-01] MEDS: PANTOPRAZOLE 40 MG TABLET.DR PO SCH (08:59)
[2020-05-01] MEDS: GABAPENTIN 300 MG CAPSULE PO SCH ×2 (08:59→17:24)
[2020-05-01] MEDS: CARVEDILOL 12.5 MG TABLET PO SCH (08:59)
[2020-05-01] MEDS ORDERED: POTASSIUM PHOSPHATE MM 15 MMOL in IV NS 0.9% 250 ML IV SCH (10:00)
[2020-05-01] MEDS: POTASSIUM PHOSPHATE MM 7.5 MMOL in IV D5W 100 ML IV SCH ×2 (10:14→13:36)
[2020-05-01 16:00] VITALS: BP 151/71
--- NOTE | 2020-05-01 17:02 | NUR ---
MS RN NOTE PATIENT SEEN AND EXAMINED BY DR. PEDROZA WITH N.O. CARRIED OUT FOR CLEAR LIQUIDS DIET AND WOUND CARE DAILY. ,
[2020-05-01] MEDS: CEFTRIAXONE 1 G in IV D5W 50 ML IV SCH (17:24)
[2020-05-01] MEDS ORDERED: TPN BAG #8 IV PRN ×8 (18:00)
--- NOTE | 2020-05-01 18:40 | NUR ---
MS RN NOTES PATIENT RESTING COMFORTABLY IN BED. HOB ELEVATED. NO S/S OF RESPIRATORY DISTRESS. ATE CLEAR LIQUID DIET FOR DINNER WITHOUT PROBLEMS. ADMINISTERED WHOLE PILL WIHTOUT COMPLICATIONS. ABD DISTENTION STILL NOTED WITH DEONTE DRAIN INTACT AND PATENT WITH 5ML BROWN OUTPUT, SOFT AND NON-TENDER TO TOUCH. .ON TPN AT 65ML/HR AND LIPIDS AT 20 ML/HR STILL INFUSING SUNSHINE WELL TO RIGHT UPPER ARM PICC LINE, INTACT AND PATENT. BED IN LOWEST POSITION, LOCKED. BED ALARM ON. ABLE TO VERBALIZE NEEDS. CALL LIGHT WITHIN REACH, IN NO APPARENT DISTRESS.
[2020-05-01 20:00] VITALS: BP 134/67
[2020-05-02] MEDS: METOCLOPRAMIDE HCL 10 MG/2 ML VIAL IV SCH ×5 (00:09→22:34)
[2020-05-02] MEDS: INSULIN REGULAR, HUMAN 100 UNIT/ML 3 ML VIAL SQ PRN ×3 (00:11→18:05)
[2020-05-02] MEDS: BLOOD SUGAR DIAGNOSTIC 1 EACH STRIP IN SCH ×4 (00:16→18:06)
[2020-05-02] MEDS: TERAZOSIN HCL 1 MG CAPSULE PO SCH ×2 (00:34→21:44)
[2020-05-02] MEDS: MORPHINE SULFATE INJ 2 MG/ML DISP.SYRIN IV PRN (00:41)
[2020-05-02] MEDS: CARVEDILOL 12.5 MG TABLET PO SCH ×3 (00:57→21:43)
[2020-05-02] MEDS: IPRATROPIUM NEB FS 0.5 MG/2.5 ML AMPUL.NEB NEB SCH ×4 (01:40→19:52)
[2020-05-02] MEDS: ALBUTEROL FS 2.5 MG/3 ML VIAL.NEB NEB SCH ×4 (01:40→19:52)
--- NOTE | 2020-05-02 01:53 | NUR ---
MS/TELE/RN PATIENT IS SLEEPING AT THIS TIME, APPEAR COMFORTABLE, NO SIGNS OF DISTRESS NOTED, CALL LIGHT IN REACH. WILL CONTINUE TO MONITOR.
[2020-05-02] MEDS: METRONIDAZOLE 500MG/ NS 100ML 500 MG in PREMIX 1 EA IV SCH ×3 (05:11→21:26)
--- NOTE | 2020-05-02 06:34 | NUR ---
MS/TELE/RN PATIENT IS STILL SLEEPING AT THIS TIME, APPEAR COMFORTABLE, NO SIGNS OF DISTRESS NOTED, CALL LIGHT IN REACH, ALL NEEDS ATTENDED AT THIS TIME, WILL CONTINUE TO MONITOR.
[2020-05-02 08:00] VITALS: BP 121/64
[2020-05-02 08:33] LABS: CALCIUM, SERUM 7.9 mg/dL (8.5-10.1); CREATININE 1.1 mg/dL (0.6-1.3); MAGNESIUM 2.1 mg/dL (1.8-2.4); PHOSPHORUS 3.3 mg/dL (2.5-4.9); POTASSIUM 3.6 mmol/L (3.5-5.1)
[2020-05-02] MEDS: GABAPENTIN 300 MG CAPSULE PO SCH ×2 (09:36→18:06)
[2020-05-02] MEDS: PANTOPRAZOLE 40 MG TABLET.DR PO SCH (09:37)
[2020-05-02] MEDS: oxyCODONE/APAP (5/325 MG) 1 UDTAB TABLET PO PRN (09:44)
[2020-05-02 16:00] VITALS: BP 107/58
[2020-05-02] MEDS: TPN IV PRN ×16 (17:57→17:59)
[2020-05-02] MEDS: CEFTRIAXONE 1 G in IV D5W 50 ML IV SCH (18:07)
[2020-05-02] MEDS: FAT EMULSION 20% 500 ML in PREMIX 1 EA IV SCH (18:07)
--- NOTE | 2020-05-02 19:15 | NUR ---
Patient in bed, not in acute distress. Cont on IV ATB, IV intact with TPN and lipids infusing. All needs attended. No s/s of hypo/hyperglycemia noted. Safety measures intact. Report given to oncoming nurse LUCIA Wesley.
--- NOTE | 2020-05-02 20:25 | NUR ---
MS/RN/TELE/ ON INITIAL ROUNDING AT 1930, RECEIVED PATIENT SLEEPING, EASILY AROUSABLE, APPEAR COMFORTABLE, NO SIGNS OF DISTRESS NOTED, CALL LIGHT IN REACH, TPN AND LIPIDS WERE INFUSING, WILL MONITOR.
[2020-05-03] MEDS: INSULIN REGULAR, HUMAN 100 UNIT/ML 3 ML VIAL SQ PRN ×4 (00:11→18:16)
[2020-05-03] MEDS: BLOOD SUGAR DIAGNOSTIC 1 EACH STRIP IN SCH ×4 (00:14→18:11)
[2020-05-03] MEDS: IPRATROPIUM NEB FS 0.5 MG/2.5 ML AMPUL.NEB NEB SCH ×4 (01:10→20:02)
[2020-05-03] MEDS: ALBUTEROL FS 2.5 MG/3 ML VIAL.NEB NEB SCH ×4 (01:10→20:02)
--- NOTE | 2020-05-03 04:57 | NUR ---
MS/TELE/RN MORNING CARE WAS DONE, GOOD SKIN CARE RENDERED, TOTAL LINEN CHANGE WAS DONE, REPOSITIONED TO COMFORT. WILL CONTINUE TO MONITOR.
[2020-05-03] MEDS: METOCLOPRAMIDE HCL 10 MG/2 ML VIAL IV SCH ×4 (05:01→21:19)
[2020-05-03] MEDS: METRONIDAZOLE 500MG/ NS 100ML 500 MG in PREMIX 1 EA IV SCH ×3 (05:02→21:26)
--- NOTE | 2020-05-03 06:07 | NUR ---
MS/TELE/RN PATIENT IS SLEEPING, EASILY AROUSABLE, APPEAR COMFORTABLE, NO SIGNS OF DISTRESS NOTED, CALL LIGHT IN REACH, ALL NEEDS ATTENDED AT THIS TIME, WILL CONTINUE TO MONITOR.
--- NOTE | 2020-05-03 07:10 | NUR ---
MS RN OPENING NOTES RECEIVED PATIENT RESTING COMFORTABLY IN BED.AOX2. MONTSERR[place]IAN SPEAKING. NO SOB NOTED. PT ON OXYGEN 2LPM VIA NC. NO S/S OF ANY ACUTE DISTRESS. ABD DISTENTION NOTED WITH DEONTE DRAIN INTACT AND PATENT DRAINING LIGHT BROWN OUTPUT, PT ON TPN AT 65ML/HR AND LIPIDS AT 20 ML/HR STILL INFUSING BAG #9 WELL TO RIGHT UPPER ARM PICC LINE, INTACT AND PATENT. LFA G#22, INTACT AND PATENT. SAFETY PRECAUTIONS IN PLACE. BED IN LOWEST LOCKED POSITION, ALARM ON, HOB ELEVATED, SIDE RAILS X3, CALL LIGHT WITHIN REACH. WILL CONTINUE TO MONITOR.
[2020-05-03 08:00] VITALS: BP 115/62
[2020-05-03 08:10] LABS: CALCIUM, SERUM 8.2 mg/dL (8.5-10.1); CARBON DIOXIDE 27 mmol/L (21-32); CHLORIDE 106 mmol/L (98-107); CREATININE 1.4 mg/dL (0.6-1.3); GLUCOSE 188 mg/dL (74-106); MAGNESIUM 2.1 mg/dL (1.8-2.4); PHOSPHORUS 3.3 mg/dL (2.5-4.9); POTASSIUM 4.1 mmol/L (3.5-5.1); SODIUM SERUM 137 mmol/L (136-145); UREA NITROGEN, BLOOD 31 mg/dL (7-18)
[2020-05-03] MEDS: GABAPENTIN 300 MG CAPSULE PO SCH ×2 (08:46→16:33)
[2020-05-03] MEDS: CARVEDILOL 12.5 MG TABLET PO SCH ×2 (08:47→21:27)
[2020-05-03] MEDS: PANTOPRAZOLE 40 MG TABLET.DR PO SCH (08:47)
[2020-05-03] MEDS ORDERED: TPN IV PRN ×8 (09:00)
[2020-05-03 09:19] LABS: BASOPHILS % (AUTO) 0.3 % (0.0-2.0); EOSINOPHILS % (AUTO) 0.7 % (0.0-6.0); HEMATOCRIT 29 % (39-51); HEMOGLOBIN 9.4 g/dL (13.5-17.5); LYMPHOCYTES # (AUTO) 0.8 /CMM (0.8-4.8); LYMPHOCYTES % (AUTO) 6.1 % (20.0-44.0); MEAN CORPUSCULAR HGB CONC 32 g/dl (31.0-36.0); MEAN CORPUSCULAR VOLUME 96 fL (80-96); MONOCYTES # (AUTO) 0.9 /CMM (0.1-1.30); MONOCYTES % (AUTO) 6.3 % (2.0-12.0); NEUTROPHILS # (AUTO) 11.9 /CMM (1.8-8.9); NEUTROPHILS % (AUTO) 86.6 % (43.0-81.0); PLATELET COUNT (AUTO) 214 /CMM (150-450); RED BLOOD CELL COUNT(AUTO) 3.06 MIL/uL (4.5-6.0); WHITE BLOOD COUNT (AUTO) 13.7 K/uL (4.3-11.0)
[2020-05-03] MEDS: MORPHINE SULFATE INJ 2 MG/ML DISP.SYRIN IV PRN (11:01)
[2020-05-03 16:00] VITALS: BP 105/64
--- NOTE | 2020-05-03 16:08 | NUR ---
BS 207 BEFORE ADMINISTRATION OF TPN BAG #10, NO INSULIN ADMINISTERED AT THIS TIME DUE TO ANOTHER ACCUCHEK SCHEDULED AT 1800. WILL CONTINUE TO MONITOR
--- NOTE | 2020-05-03 16:35 | NUR ---
TPN BAG #9 MISSING DOCUMENTATION IN CHART, CRESENCIO BLEVINS MADE AWARE. AWAITING PHARMACY TO PROVIDE DOCUMENTATION.
--- NOTE | 2020-05-03 17:46 | NUR ---
PER DOCTOR PEDROZA, REMOVE EVERY OTHER SKIN STAPLE IN SUBCOSTAL INCISION AND REMOVE LAPAROSCOPIC PORT SITE JONATAN. ORDERS CARRIED OUT AND ADMINISTERED. SURGICAL SITE CLEANS, DRY DRESSING APPLIED, WILL CONTINUE TO MONITOR
--- NOTE | 2020-05-03 17:54 | NUR ---
PATIENT DIET ADVANCED FROM CLEAR LIQUIDS TO FULL LIQUID. PT TOLERATING WELL, WILL CONTINUE TO MONITOR
[2020-05-03] MEDS ORDERED: TPN BAG#11 IV PRN ×6 (18:00)
[2020-05-03] MEDS: CEFTRIAXONE 1 G in IV D5W 50 ML IV SCH (18:09)
--- NOTE | 2020-05-03 19:08 | NUR ---
SUPERVISOR OF GUIDANCE AND TESTING CLOSING NOTES PATIENT IN BED AWAKE AT THIS TIME. PT REMAINED STABLE THROUGHOUT SHIFT, ALL CARE, NEEDS, TREATMENT AND MEDICATION ADMINISTERED ANTICIPATED PER ORDER. PATIENT KEPT CLEAN AND DRY. SUCTION NEEDED. SAFETY PRECAUTIONS IN PLACE. BED IN LOWEST LOCKED POSITION, BED ALARM ON, HOB ELEVATED, SIDE RAILS, CALL LIGHT WITHIN REACH. WILL ENDORSE FOR HOSE HANDLER NURSE FOR MARLO
--- NOTE | 2020-05-03 20:00 | NUR ---
RN NOTES RECEIVED PATIENT IN BED, ALERT AND ORIENTED X2, STABLE ON 2LPM VIA NC, NOT IN APPARENT DISTRESS, LUKE PICC LINE, TPN AT 65 ML/HR, INFUSING WELL, LEFT HAND IV KVO, INCONTINENT, LAP TIFFANY SITES WITH DRESSING, TRANSVERSE INCISION ON ABDOMEN WITH DRESSING, NO BLEEDING, KEPT SAFE, CALL LIGHT WITHIN REACH.
[2020-05-03 20:02] VITALS: BP 114/54
[2020-05-03] MEDS: TERAZOSIN HCL 1 MG CAPSULE PO SCH (21:27)
[2020-05-04] MEDS: INSULIN REGULAR, HUMAN 100 UNIT/ML 3 ML VIAL SQ PRN ×4 (00:11→18:26)
[2020-05-04] MEDS: BLOOD SUGAR DIAGNOSTIC 1 EACH STRIP IN SCH ×4 (00:14→18:04)
[2020-05-04] MEDS: MORPHINE SULFATE INJ 2 MG/ML DISP.SYRIN IV PRN ×2 (00:35→20:22)
[2020-05-04] MEDS: IPRATROPIUM NEB FS 0.5 MG/2.5 ML AMPUL.NEB NEB SCH ×4 (02:02→20:02)
[2020-05-04] MEDS: ALBUTEROL FS 2.5 MG/3 ML VIAL.NEB NEB SCH ×4 (02:02→20:02)
[2020-05-04] MEDS: METRONIDAZOLE 500MG/ NS 100ML 500 MG in PREMIX 1 EA IV SCH ×3 (03:59→21:44)
[2020-05-04] MEDS: METOCLOPRAMIDE HCL 10 MG/2 ML VIAL IV SCH ×4 (04:04→23:02)
[2020-05-04 06:47] LABS: BASOPHILS % (AUTO) 0.3 % (0.0-2.0); EOSINOPHILS % (AUTO) 0.5 % (0.0-6.0); HEMATOCRIT 29 % (39-51); HEMOGLOBIN 9.1 g/dL (13.5-17.5); LYMPHOCYTES # (AUTO) 0.7 /CMM (0.8-4.8); LYMPHOCYTES % (AUTO) 5.6 % (20.0-44.0); MEAN CORPUSCULAR HGB CONC 32 g/dl (31.0-36.0); MEAN CORPUSCULAR VOLUME 97 fL (80-96); MONOCYTES # (AUTO) 0.8 /CMM (0.1-1.30); MONOCYTES % (AUTO) 6.4 % (2.0-12.0); NEUTROPHILS # (AUTO) 10.5 /CMM (1.8-8.9); NEUTROPHILS % (AUTO) 87.2 % (43.0-81.0); PLATELET COUNT (AUTO) 206 /CMM (150-450); RED BLOOD CELL COUNT(AUTO) 2.96 MIL/uL (4.5-6.0); WHITE BLOOD COUNT (AUTO) 12.1 K/uL (4.3-11.0)
--- NOTE | 2020-05-04 06:49 | NUR ---
RN NOTES ALERT AND AWAKE, NOT IN APPARENT DISTRESS, 2LPM VIA NC, DENIES PAIN AT THIS TIME, ABDOMINAL INCISION WITH JONATAN, SECURED WITH DRESSING, NO DRAINAGE, VS STABLE, AFEBRILE, TOLERATING FULL LIQUID DIET, TPN AT 65 ML/HR, HUNG BAG #11, DEONTE DRAIN WITH SCANT CREAMY, BROWN DRAINAGE, 10 ML. CONTINUE ROCEPHIN AND FLAGYL, PER DR. PEDROZA BILE LEAK ALMOST COMPLETELY SEALED.
[2020-05-04 06:51] LABS: CALCIUM, SERUM 8.1 mg/dL (8.5-10.1); CARBON DIOXIDE 24 mmol/L (21-32); CHLORIDE 106 mmol/L (98-107); CREATININE 1.5 mg/dL (0.6-1.3); GLUCOSE 145 mg/dL (74-106); PHOSPHORUS 3.9 mg/dL (2.5-4.9); POTASSIUM 3.8 mmol/L (3.5-5.1); SODIUM SERUM 137 mmol/L (136-145); UREA NITROGEN, BLOOD 34 mg/dL (7-18)
[2020-05-04 08:00] VITALS: BP 121/65
[2020-05-04] MEDS: GABAPENTIN 300 MG CAPSULE PO SCH ×2 (09:11→18:05)
[2020-05-04] MEDS: PANTOPRAZOLE 40 MG TABLET.DR PO SCH (09:11)
[2020-05-04] MEDS: CARVEDILOL 12.5 MG TABLET PO SCH ×2 (09:14→21:00)
[2020-05-04] MEDS: POTASSIUM CHLORIDE 20 MEQ TAB.PRT.SR PO SCH ×3 (09:45→12:12)
[2020-05-04] MEDS: FUROSEMIDE 100 MG/10 ML VIAL IV SCH ×3 (09:45→18:04)
[2020-05-04] MEDS ORDERED: TPN BAG #12 IV PRN ×8 (12:00)
[2020-05-04 16:00] VITALS: BP 108/62
[2020-05-04] MEDS: FAT EMULSION 20% 500 ML in PREMIX 1 EA IV SCH (18:31)
[2020-05-04] MEDS: CEFTRIAXONE 1 G in IV D5W 50 ML IV SCH (18:31)
--- NOTE | 2020-05-04 19:10 | NUR ---
RN CLOSING NOTES PT. IN BED. NO ACUTE DISTRESS NOTED. A&OX2, WITH PERIODS OF CONFUSION. PT. ON 2L O2 VIA NC, SATURATING WELL AT 97%. PT. DEONTE DRAIN INTACT, PATENT, DRAINING TO GRAVITY. PT. LUKE PICC INTACT, PATENT, FLUSHED WELL. PT. L HAND #22 INTACT, PATENT, FLUSHED WELL. PT. SAFETY MAINTAINED. CALL LIGHT WITHIN REACH. WILL ENDORSE PLAN OF CARE TO ONCOMING NURSE
--- NOTE | 2020-05-04 19:10 | NUR ---
RN MS OPENING NOTES RECEIVED PATIENT IN BED, AWAKE ALERT AND ORIENTED X2, [place] SPEAKING, ABLE TO MAKE SIMPLE NEEDS KNOWN, ON 2L VIA NC TOLERATING WELL, RESPIRATIONS EVEN AND UNLABORED WITH EQUAL RISE AND FALL OF CHEST,DEONTE DRAIN INTACT NOTED DRAINAGE DAMON/BROWN COLOR, ABD NOTED WITH SURGICAL DRESSING IN PLACE C/D/I. LUKE PICC LINE INTACT AND PATENT, DRESSING IS C/D/I. LEFT HAND #22 G INTACT AND PATENT. TPN AND LIPIDS RUNNING ORDERED, ORIENTED TO STAFF AND CALL LIGHT AND KEPT WITHIN REACH, LOW BED AND LOCKED, BED ALARM IN PLACE, SIDE RAILS X3 , REMAINS COMFORTABLE AT THIS TIME, WILL CONTINUE TO MONITOR.
[2020-05-04 20:00] VITALS: BP 103/74
--- NOTE | 2020-05-04 20:22 | NUR ---
rn ms notes patient complaint of strong pain to abdomen unable to scale rate, based on flacc noted 07/23. vs wnl. morphine prn as ordered given , will continue to monitor for effectiveness.
--- NOTE | 2020-05-04 21:20 | NUR ---
LUCIA STORM NOTES COREG HELD TO AVOID HYPOTENSION CURRENT B/P 105,60,69 Addendum: 05/05/20 at 0623 by INES BREWER RN CLARIFICATION OF B/P 105/60 , HR 69
[2020-05-04] MEDS: TERAZOSIN HCL 1 MG CAPSULE PO SCH (21:44)
[2020-05-05] MEDS: BLOOD SUGAR DIAGNOSTIC 1 EACH STRIP IN SCH ×4 (00:29→18:08)
--- NOTE | 2020-05-05 00:44 | NUR ---
rn ms notes new tpn bag #12 started as ordered, and verified with another RN/CHARGE NURSE. accucheck done 163 3 units of insulin given per sliding scale.
[2020-05-05] MEDS: INSULIN REGULAR, HUMAN 100 UNIT/ML 3 ML VIAL SQ PRN ×4 (01:07→18:13)
[2020-05-05] MEDS: IPRATROPIUM NEB FS 0.5 MG/2.5 ML AMPUL.NEB NEB SCH ×4 (01:58→19:57)
[2020-05-05] MEDS: ALBUTEROL FS 2.5 MG/3 ML VIAL.NEB NEB SCH ×4 (01:59→19:57)
[2020-05-05] MEDS ORDERED: TPN BAG #13 IV PRN ×13 (02:00→12:40)
[2020-05-05] MEDS: METOCLOPRAMIDE HCL 10 MG/2 ML VIAL IV SCH ×4 (05:17→22:17)
[2020-05-05] MEDS: METRONIDAZOLE 500MG/ NS 100ML 500 MG in PREMIX 1 EA IV SCH ×3 (05:18→20:45)
--- NOTE | 2020-05-05 06:23 | NUR ---
RN MS CLOSING NOTES PATIENT IN BED, AWAKE ALERT AND ORIENTED X2, PERSIAN SPEAKING, ABLE TO MAKE SIMPLE NEEDS KNOWN, ON 2-3L VIA NC TOLERATING WELL, RESPIRATIONS EVEN AND UNLABORED WITH EQUAL RISE AND FALL OF CHEST,DEONTE DRAIN INTACT NOTED DRAINAGE DAMON/BROWN COLOR 2.5CC OUTPUT, ABD NOTED WITH SURGICAL DRESSING IN PLACE C/D/I. LUKE PICC LINE INTACT AND PATENT, DRESSING IS C/D/I. LEFT HAND #22 G INTACT AND PATENT. TPN AND LIPIDS RUNNING ORDERED, CALL LIGHT KEPT WITHIN REACH, LOW BED AND LOCKED, BED ALARM IN PLACE, SIDE RAILS X3 , REMAINS COMFORTABLE AT THIS TIME, WILL CONTINUE TO MONITOR AND ENDORSE TO NEXT SHIFT.
--- NOTE | 2020-05-05 06:23 | NUR ---
LUCIA MS CLOSING NOTES PATIENT IN BED, AWAKE ALERT AND ORIENTED X2, VIETNAMESE SPEAKING, ABLE TO MAKE SIMPLE NEEDS KNOWN, ON 2-3L VIA NC TOLERATING WELL, RESPIRATIONS EVEN AND UNLABORED WITH EQUAL RISE AND FALL OF CHEST,DEONTE DRAIN INTACT NOTED DRAINAGE DAMON/BROWN COLOR 2.5CC OUTPUT, ABD NOTED WITH SURGICAL DRESSING IN PLACE C/D/I. LUKE PICC LINE INTACT AND PATENT, DRESSING IS C/D/I. LEFT HAND #22 G INTACT AND PATENT. TPN AND LIPIDS RUNNING ORDERED, CALL LIGHT KEPT WITHIN REACH, LOW BED AND LOCKED, BED ALARM IN PLACE, SIDE RAILS X3 , REMAINS COMFORTABLE AT THIS TIME, WILL CONTINUE TO MONITOR AND ENDORSE TO NEXT SHIFT. Addendum: 05/05/20 at 0630 by INES BREWER RN Disregard note. On orientation.
[2020-05-05 08:00] VITALS: BP 118/70
--- NOTE | 2020-05-05 08:00 | NUR ---
MS RN OPENING NOTES Received Patient resting in bed. A/O x 2, [place] speaking. VS stable with no acute distress. Breathing even and unlabored on 3LPM via NC with no respiratory distress. Denies pain. No signs and symptoms of pain. DEONTE Drain in place and patent with brown output noted. LUKE PICC Line clean, intact, patent and flushing well with TPN infusing at 65ml/hr and Lipids infusing at 20ml/hr. 22g PIV on left hand clean, intact, patent and flushing well. Safety precautions in place. Bed locked and set to lowest position with side rails x 2 up. All needs rendered at this time. Call light within reach. Will continue to monitor.
[2020-05-05 08:18] LABS: BASOPHILS # (AUTO) 0.1 /CMM (0.0-0.2); BASOPHILS % (AUTO) 0.6 % (0.0-2.0); EOSINOPHILS % (AUTO) 0.8 % (0.0-6.0); HEMATOCRIT 28 % (39-51); LYMPHOCYTES # (AUTO) 0.6 /CMM (0.8-4.8); LYMPHOCYTES % (AUTO) 5.1 % (20.0-44.0); MEAN CORPUSCULAR HGB CONC 32 g/dl (31.0-36.0); MEAN CORPUSCULAR VOLUME 95 fL (80-96); MONOCYTES # (AUTO) 0.6 /CMM (0.1-1.30); NEUTROPHILS # (AUTO) 11.2 /CMM (1.8-8.9); NEUTROPHILS % (AUTO) 88.5 % (43.0-81.0); PLATELET COUNT (AUTO) 208 /CMM (150-450); RED BLOOD CELL COUNT(AUTO) 2.93 MIL/uL (4.5-6.0); WHITE BLOOD COUNT (AUTO) 12.7 K/uL (4.3-11.0)
[2020-05-05] MEDS: CARVEDILOL 12.5 MG TABLET PO SCH ×2 (08:44→20:42)
[2020-05-05] MEDS: PANTOPRAZOLE 40 MG TABLET.DR PO SCH (08:45)
[2020-05-05] MEDS: GABAPENTIN 300 MG CAPSULE PO SCH ×2 (08:45→16:50)
[2020-05-05 08:53] LABS: ALANINE AMINOTRANSFERASE 6 U/L (12-78); ALBUMIN 1.6 g/dL (3.4-5.0); ALKALINE PHOSPHATASE 106 U/L (46-116); ASPARTATE AMINOTRANSFERASE 14 U/L (15-37); BILIRUBIN,TOTAL 0.3 mg/dL (0.2-1.0); CALCIUM, SERUM 7.9 mg/dL (8.5-10.1); CARBON DIOXIDE 27 mmol/L (21-32); CHLORIDE 102 mmol/L (98-107); CREATININE 1.7 mg/dL (0.6-1.3); GLUCOSE 190 mg/dL (74-106); MAGNESIUM 1.9 mg/dL (1.8-2.4); PHOSPHORUS 3.6 mg/dL (2.5-4.9); POTASSIUM 3.2 mmol/L (3.5-5.1); SODIUM SERUM 135 mmol/L (136-145); TOTAL PROTEIN, SERUM 6.9 g/dL (6.4-8.2); UREA NITROGEN, BLOOD 40 mg/dL (7-18)
[2020-05-05] MEDS ORDERED: POTASSIUM CHLORIDE 20 MEQ POWDER PACKET GT SCH (10:00)
[2020-05-05] MEDS ORDERED: TPN BAG #14 IV PRN ×9 (13:00)
[2020-05-05 16:00] VITALS: BP 112/71
[2020-05-05] MEDS: CEFTRIAXONE 1 G in IV D5W 50 ML IV SCH (18:08)
--- NOTE | 2020-05-05 19:38 | NUR ---
MS RN CLOSING NOTES Patient resting in bed. A/O x 2, [place] speaking. VS stable with no acute distress. Breathing even and unlabored on 3LPM via NC with no respiratory distress. Denies pain. No signs and symptoms of pain. DEONTE Drain in place and patent with 5ml brown output noted. LUKE PICC Line clean, intact, patent and flushing well with TPN infusing at 65ml/hr. 22g PIV on left hand clean, intact, patent and flushing well. Safety precautions in place. Bed locked and set to lowest position with side rails x 2 up. All needs rendered at this time. Call light within reach. Will endorse plan of care to oncoming shift.
--- NOTE | 2020-05-05 19:39 | NUR ---
MS RN OPENING PM NOTES BEDSIDE REPORT RECIEVED FROM KSENIA MYERS. PATIENT IN BED A/O X2. PRIMARILY [place] SPEAKING SOME TRANSLATION ASSISTED WITH MARGAUX WHITLOCK. IN NO APPARENT DISTRESS. BREATHING EVEN AND UNLABORED ON 3LNC. DENIES PAIN AT THIS TIME. DEONTE DRAIN ONLY HAD 5ml brown output DURING DAY SHIFT. LUKE PICC LINE DRESSING INTACT. PORTS FLUSHED. RUNNING TPN AT 65ML PER HOUR. 22g PIV LEFT HAND INTACT PATENT FLUSHED NO S/S OF INFILTRATION. BED DOWN LOCKED AND SRX2 CALL LIGHT WITHIN REACH. BED ALARM ACTIVE. PATIENT WEARING ARM SLEEVES OVER IV TO BILATERAL ARMS WILL CONT TO MONITOR.
[2020-05-05 20:00] VITALS: BP 107/69
[2020-05-05] MEDS: TERAZOSIN HCL 1 MG CAPSULE PO SCH (20:42)
[2020-05-06] MEDS: BLOOD SUGAR DIAGNOSTIC 1 EACH STRIP IN SCH ×4 (00:55→17:01)
[2020-05-06] MEDS: INSULIN REGULAR, HUMAN 100 UNIT/ML 3 ML VIAL SQ PRN ×2 (00:59→17:10)
[2020-05-06] MEDS: ALBUTEROL FS 2.5 MG/3 ML VIAL.NEB NEB SCH ×4 (01:43→19:45)
[2020-05-06] MEDS: IPRATROPIUM NEB FS 0.5 MG/2.5 ML AMPUL.NEB NEB SCH ×4 (01:43→19:45)
[2020-05-06] MEDS: METOCLOPRAMIDE HCL 10 MG/2 ML VIAL IV SCH ×4 (04:55→22:57)
[2020-05-06] MEDS: METRONIDAZOLE 500MG/ NS 100ML 500 MG in PREMIX 1 EA IV SCH ×3 (04:56→21:15)
--- NOTE | 2020-05-06 06:45 | NUR ---
MS RN CLOSING PM NOTE PATIENT IN BED SEEN WITH EYES CLOSED. IN NO APPARENT DISTRESS. BREATHING EVEN AND UNLABORED ON 3LNC. IN NO APPARENT PAIN. DEONTE DRAIN ONLY HAD 5ml CREAMY brown output Y SHIFT. LUKE PICC LINE DRESSING INTACT. PORTS FLUSHED. RUNNING TPN AT 65ML PER HOUR. 22g PIV LEFT HAND INTACT PATENT FLUSHED NO S/S OF INFILTRATION. BED DOWN LOCKED AND SRX2 CALL LIGHT WITHIN REACH. BED ALARM ACTIVE. WILL ENDORSE TO ONCOMING SHIFT
--- NOTE | 2020-05-06 07:30 | NUR ---
MS/RN OPENING NOTES Patient resting in bed, A&O x 2. No s/s of pain or discomfort noted at this time. Breathing even and non-labored on 3L oxygen via NC. No cardiac distress noted at this time. DEONTE drain in place, brown output noted. LUKE PICC line noted, infusing TPN at 65 mL/hr. No s/s infiltration or infection noted. IV access noted on L hand #22, patent and intact, flushing well. Sensation from all peripheral extremities noted. Fall precautions noted. Will continue with current medical management.
[2020-05-06 08:00] VITALS: BP 111/70
[2020-05-06 08:09] LABS: BASOPHILS # (AUTO) 0.1 /CMM (0.0-0.2); BASOPHILS % (AUTO) 0.6 % (0.0-2.0); EOSINOPHILS % (AUTO) 0.6 % (0.0-6.0); HEMATOCRIT 30 % (39-51); HEMOGLOBIN 9.5 g/dL (13.5-17.5); LYMPHOCYTES # (AUTO) 0.7 /CMM (0.8-4.8); LYMPHOCYTES % (AUTO) 6.3 % (20.0-44.0); MEAN CORPUSCULAR HGB CONC 32 g/dl (31.0-36.0); MEAN CORPUSCULAR VOLUME 95 fL (80-96); MONOCYTES # (AUTO) 0.8 /CMM (0.1-1.30); NEUTROPHILS # (AUTO) 9.9 /CMM (1.8-8.9); NEUTROPHILS % (AUTO) 85.5 % (43.0-81.0); PLATELET COUNT (AUTO) 203 /CMM (150-450); RED BLOOD CELL COUNT(AUTO) 3.14 MIL/uL (4.5-6.0); WHITE BLOOD COUNT (AUTO) 11.5 K/uL (4.3-11.0)
[2020-05-06] MEDS: PANTOPRAZOLE 40 MG TABLET.DR PO SCH (08:12)
[2020-05-06] MEDS: CARVEDILOL 12.5 MG TABLET PO SCH ×2 (08:12→21:16)
[2020-05-06] MEDS: GABAPENTIN 300 MG CAPSULE PO SCH ×2 (08:12→16:36)
[2020-05-06 08:45] LABS: CALCIUM, SERUM 8.1 mg/dL (8.5-10.1); CARBON DIOXIDE 27 mmol/L (21-32); CHLORIDE 103 mmol/L (98-107); CREATININE 1.5 mg/dL (0.6-1.3); GLUCOSE 120 mg/dL (74-106); PHOSPHORUS 3.5 mg/dL (2.5-4.9); POTASSIUM 3.9 mmol/L (3.5-5.1); SODIUM SERUM 135 mmol/L (136-145); UREA NITROGEN, BLOOD 39 mg/dL (7-18)
[2020-05-06] MEDS: FUROSEMIDE 100 MG/10 ML VIAL IV SCH ×3 (09:44→16:36)
[2020-05-06] MEDS ORDERED: TPN BAG #16 IV PRN ×9 (12:00)
[2020-05-06] MEDS ORDERED: TPN IV PRN ×14 (12:00→14:30)
--- NOTE | 2020-05-06 12:15 | NUR ---
MS/RN NOTES Patient tolerated only 10% of full liquid diet this morning. Will continue with TPN infusion and try to taper it down once full liquid diet is tolerated well. Addendum: 05/06/20 at 1347 by MINERVA MORGAN RN In addition to above, TPN will be tapered down tomorrow 05/07/2020
[2020-05-06] MEDS ORDERED: TPN BAG #18 IV PRN ×9 (15:00)
[2020-05-06 16:00] VITALS: BP 116/67
[2020-05-06] MEDS: CEFTRIAXONE 1 G in IV D5W 50 ML IV SCH (17:08)
[2020-05-06] MEDS: FAT EMULSION 20% 500 ML in PREMIX 1 EA IV SCH (17:42)
--- NOTE | 2020-05-06 17:42 | NUR ---
MS/RN NOTES Started lipids on the LUKE PICC line, running at 20 mls/hr. Will continue to monitor patient for any changes in condition.
--- NOTE | 2020-05-06 18:59 | NUR ---
MS/RN CLOSING NOTES Patient resting in bed, A&O x 2, zambian speaking. On 3L oxygen via NC, no SOB noted, breathing even and non-labored. Patient denies any s/s of pain or discomfort noted at this time. No cardiac distress noted at this time. DEONTE drain in place, 10 mL of brown output noted. LUKE PICC line noted, infusing TPN at 65 mL/hr and Lipids at 20 mls/hr. IV access noted on L hand #22, patent and intact, flushing well. Sensation from all peripheral extremities noted. Fall precautions noted. As per Dr. Blackburn, COVID-19 test is ordered. Will endorse to fast food shift supervisor nurse.
--- NOTE | 2020-05-06 19:30 | NUR ---
MS RN NOTE: Dr. Worthy came in and seen patient with new orders to send culture for DEONTE drainage. Orders noted and carried out.
[2020-05-06 20:00] VITALS: BP 113/51
--- NOTE | 2020-05-06 20:00 | NUR ---
RN MS OPENING NOTE: Received patient resting in bed. Patient is AOx2. Patient shows no signs of pain or discomfort. Patient breathing unlabored and equal. No SOB. On nasal canula with 3L oxygen. LUKE PICC line patent, no redness or infiltration. Safety precaution in place. Bed in lowest position, bed brakes are on, side rails x2 are up, and call light within reach. Will continue plan of care and monitor.
[2020-05-06] MEDS: TERAZOSIN HCL 1 MG CAPSULE PO SCH (21:17)
--- NOTE | 2020-05-06 22:35 | NUR ---
MS RN NOTE: Covid swab taken orally. Taken specimen to Lab at 2235.
[2020-05-07] MEDS: BLOOD SUGAR DIAGNOSTIC 1 EACH STRIP IN SCH ×5 (00:48→23:54)
[2020-05-07] MEDS: INSULIN REGULAR, HUMAN 100 UNIT/ML 3 ML VIAL SQ PRN ×3 (01:06→17:23)
[2020-05-07] MEDS: ALBUTEROL FS 2.5 MG/3 ML VIAL.NEB NEB SCH ×4 (01:11→19:30)
[2020-05-07] MEDS: IPRATROPIUM NEB FS 0.5 MG/2.5 ML AMPUL.NEB NEB SCH ×4 (01:11→19:30)
[2020-05-07] MEDS: METOCLOPRAMIDE HCL 10 MG/2 ML VIAL IV SCH ×4 (04:30→23:56)
[2020-05-07] MEDS: METRONIDAZOLE 500MG/ NS 100ML 500 MG in PREMIX 1 EA IV SCH ×3 (05:00→21:00)
[2020-05-07 06:55] LABS: CARBON DIOXIDE 34 mmol/L (21-32); CHLORIDE 99 mmol/L (98-107); CREATININE 1.6 mg/dL (0.6-1.3); GLUCOSE 235 mg/dL (74-106); MAGNESIUM 1.8 mg/dL (1.8-2.4); PHOSPHORUS 3.6 mg/dL (2.5-4.9); POTASSIUM 3.6 mmol/L (3.5-5.1); SODIUM SERUM 134 mmol/L (136-145); UREA NITROGEN, BLOOD 40 mg/dL (7-18)
[2020-05-07 08:00] VITALS: BP 106/56
--- NOTE | 2020-05-07 08:00 | NUR ---
MS/RN - Assessment Patient in bed, A&O x 2, no complaints overnight, afebrile, denies pain, uses supplemental oxygen at 3lpm via NC, no SOB noted. POD#15 Exploratory laparotomy with closure of the duodenal perforation (2 layers), and oversew of bile leak of the liver bed (04/22/2020). Bowel sounds hypoactive on all quadrants, abdomen distended, no c/o n/v, able to tolerate full liquid diet. Abdominal incision with slight redness, dressing is clean/dry/intact. LUKE PICC line in place, infusing TPN at 65 ml/hr and Lipids at 20 ml/hr. Saline lock on left hand is patent and intact, flushing well. Labs reviewed, no critical results seen, Covid-19 result still pending. Droplet/contact and aspiration precautions maintained. Will continue with current plan of care.
[2020-05-07] MEDS: PANTOPRAZOLE 40 MG TABLET.DR PO SCH (08:26)
[2020-05-07] MEDS: CARVEDILOL 12.5 MG TABLET PO SCH ×2 (08:26→21:00)
[2020-05-07] MEDS: GABAPENTIN 300 MG CAPSULE PO SCH ×2 (08:26→16:30)
[2020-05-07] MEDS ORDERED: BUMETANIDE INJ 16 MG in IV NS 0.9% 16 ML IV ONE (09:30)
[2020-05-07] MEDS ORDERED: TPN BAG #17 IV PRN ×6 (09:47)
[2020-05-07] MEDS: POTASSIUM CHLORIDE 20 MEQ POWDER PACKET GT SCH ×3 (10:15→12:55)
[2020-05-07] MEDS: MORPHINE SULFATE INJ 2 MG/ML DISP.SYRIN IV PRN (12:08)
[2020-05-07] MEDS ORDERED: TPN BAG #18 IV PRN ×8 (12:26)
--- NOTE | 2020-05-07 13:30 | NUR ---
RT PT IS R/O COVID-19 AT THE MOMENT, RESULTS ARE PENDING. PER COVID 19 PROTOCOL AERSOLIZED TX WILL NOT BEEN GIVEN UNTIL RESULTS COME BACK. NO SOB OR RESP DISTRESS NOTED. WILL CONTINUE TO MONITOR T/O SHIFT.
[2020-05-07 16:00] VITALS: BP 106/54
[2020-05-07] MEDS: CEFTRIAXONE 1 G in IV D5W 50 ML IV SCH (17:18)
--- NOTE | 2020-05-07 18:19 | NUR ---
MS/RN - End of shift summary No significant change in condition seen. Plan is to advance diet to soft if ok with Dr. Worthy, if able to tolerate soft diet, taper TPN per protocol. Bumex drip given x 1, diuresing well, total output was 1200 ml of yellow urine. All needs attended. Will continue with current plan of care. Addendum: 05/07/20 at 1822 by JD LARA RN Covid-19 result is still pending at this time
--- NOTE | 2020-05-07 19:40 | NUR ---
MS RN NOTES RECEIVED ON BED A/O X2,BREATHING EASY,NO SOB,O2 IN USED AT 2L/NC TO KEEP O2 SAT ABOVE 90%.ABDOMEN DISTENDED BUT SOFT,CONDOM CATH PLACE,PATIENT WAS GIVEN BUMEX ON DAY SHIFT.TPN IN PROGRESS,LIPIDS INFUSING ON RIGHT UPPER ARM PICC LINE.DROPLET PRECAUTION AWAITING COVID TEST RESULT.CALL LIGHT IN REACH,NEEDS ANTICIPATED.
[2020-05-07 20:00] VITALS: BP 114/55
[2020-05-07 20:48] VITALS: BP 114/55
[2020-05-07] MEDS: TERAZOSIN HCL 1 MG CAPSULE PO SCH (21:50)
--- NOTE | 2020-05-08 | NUR ---
MS RN NOTES ACC-CHECK BLOOD SUGAR CHECK 187,COVERED WITH HUMULIN R 3UNITS PER SLIDING SCALE.TPN INFUSING.
[2020-05-08] MEDS: INSULIN REGULAR, HUMAN 100 UNIT/ML 3 ML VIAL SQ PRN ×6 (00:05→23:59)
[2020-05-08] MEDS: MORPHINE SULFATE INJ 2 MG/ML DISP.SYRIN IV PRN (00:56)
--- NOTE | 2020-05-08 00:56 | NUR ---
MS RN NOTES PAIN MANAGEMENT C/O ABDOMINAL PAIN 8/10 ON PAIN SCALE,MEDICATED WITH MORPHINE 2MG IV ORDERED FOR SEVERE PAIN.WILL MONITOR FOR RELIEF.
[2020-05-08] MEDS: ALBUTEROL FS 2.5 MG/3 ML VIAL.NEB NEB SCH ×4 (01:30→19:21)
[2020-05-08] MEDS: IPRATROPIUM NEB FS 0.5 MG/2.5 ML AMPUL.NEB NEB SCH ×4 (01:30→19:21)
[2020-05-08] MEDS: METRONIDAZOLE 500MG/ NS 100ML 500 MG in PREMIX 1 EA IV SCH ×3 (04:35→21:05)
--- NOTE | 2020-05-08 04:48 | NUR ---
MS RN NOTES TPN#17 HUNG,INFUSING AT SAME RATE 65ML/HR RATE.BLOOD SUGAR CHECK 132,COVERED WITH HUMULIN R 2 UNITS PER SLIDING SCALE.
[2020-05-08] MEDS: BLOOD SUGAR DIAGNOSTIC 1 EACH STRIP IN SCH ×4 (04:58→23:44)
[2020-05-08] MEDS: METOCLOPRAMIDE HCL 10 MG/2 ML VIAL IV SCH ×4 (05:36→23:45)
--- NOTE | 2020-05-08 06:52 | NUR ---
MS RN NOTES PAIN MANAGEMENT EFFECTIVE,ABDOMEN REMAINS DISTENDED,TPN INFUSING D/C PLANNING AWAITING COVID TESTING RESULT
[2020-05-08 08:00] VITALS: BP 103/56
[2020-05-08] MEDS: FUROSEMIDE 80 MG TABLET PO SCH (09:10)
[2020-05-08] MEDS: CARVEDILOL 12.5 MG TABLET PO SCH ×2 (09:11→21:05)
[2020-05-08] MEDS: PANTOPRAZOLE 40 MG TABLET.DR PO SCH (09:11)
[2020-05-08] MEDS: GABAPENTIN 300 MG CAPSULE PO SCH ×2 (09:11→17:27)
[2020-05-08] MEDS: POTASSIUM CHLORIDE 20 MEQ TAB.PRT.SR PO SCH (10:48)
[2020-05-08 10:50] LABS: CALCIUM, SERUM 8.1 mg/dL (8.5-10.1); CARBON DIOXIDE 34 mmol/L (21-32); CHLORIDE 100 mmol/L (98-107); CREATININE 1.5 mg/dL (0.6-1.3); GLUCOSE 198 mg/dL (74-106); POTASSIUM 3.6 mmol/L (3.5-5.1); SODIUM SERUM 136 mmol/L (136-145); UREA NITROGEN, BLOOD 43 mg/dL (7-18)
[2020-05-08 10:54] LABS: MAGNESIUM 1.7 mg/dL (1.8-2.4); PHOSPHORUS 3.4 mg/dL (2.5-4.9)
--- NOTE | 2020-05-08 13:00 | NUR ---
MS RN NOTES CALL RECEIVED FROM LAB REPORTING NEGATIVE COVID RESULTS. NOTED RESULTS INFORMED
[2020-05-08 16:24] VITALS: BP 112/66
[2020-05-08] MEDS: CEFTRIAXONE 1 G in IV D5W 50 ML IV SCH (17:34)
[2020-05-08] MEDS: FAT EMULSION 20% 500 ML in PREMIX 1 EA IV SCH (17:45)
--- NOTE | 2020-05-08 18:45 | NUR ---
MS RN NOTES PATIENT IN BED RESTING NO SOB OR ACUTE DISTRESS NOTED. PATIENT HAS PUREE DIET. TOLERATING IT WELL. ALL DUE MEDICATIONS ADMINISTERED. ALL NEEDS MET. WILL CONTINUE TO MONITOR.
[2020-05-08 20:00] VITALS: BP 126/62
--- NOTE | 2020-05-08 20:20 | NUR ---
rn notes/assessment: received report from oren orozco at 1920. pt in bed, a/o x2 icelandic speaking, placed on 2l oxygen as spo2 on ra is only 91%. pt has right upper arm picc line in placed, double lumen, able to flush well with 10cc normal saline, noted with good blood return noted. pt currently receiving tpn bag #17 at 65ml/hr, also lipid infusing at 20 ml/hr. pt also have left hand iv access for atb purposes. patent and flushing well, on hl. noted abdominal distention wherein md is aware, as pt has this since post surgery. abdomen soft to touch with hypoactive bowel sound noted upon auscultation of abdomen. abdl incision covered with c/d/i dressing, no active bleeding noted. ble kept offloaded on pillows. pt on alicia mattress. scd in use.safety precautions for fall initiated, call light in reach, will continue monitoring pt.
[2020-05-08 21:04] VITALS: BP 131/63
[2020-05-08] MEDS: TERAZOSIN HCL 1 MG CAPSULE PO SCH (21:34)
--- NOTE | 2020-05-08 21:34 | NUR ---
accu check 254/administration of bag#18 tpn: fingerstick glucose check performed, result obtained is 254, 6units of insulin given per sliding scale. tpn bag #27 finished, new bag #18 administered , cosigned/witnessed by pam ragsdale, rate 65 ml/h. Addendum: 05/08/20 at 2332 by NAKUL HERNÁNDEZ RN correction of entry: current rate of tpn bag #18 is 64.057 ml/hr
--- NOTE | 2020-05-08 21:35 | NUR ---
accu check 254/administration of bag#18 tpn: fingerstick glucose check performed, result obtained is 254, 6units of insulin given per sliding scale. tpn bag #27 finished, new bag #18 administered , cosigned/witnessed by pam ragsdale, current rate 64.057 ml/h.
[2020-05-08 23:35] VITALS: BP 116/63
[2020-05-08] MEDS: oxyCODONE/APAP (5/325 MG) 1 UDTAB TABLET PO PRN (23:45)
--- NOTE | 2020-05-09 | NUR ---
midnight accu check 244/clarification with [facility]: fingerstick blood glucose check performed and result is 244. clarified with [facility]-spoked with hyacinth, relayed situation as at 2128 i changed the tpn bag as the previous bag was emptied/finished, and it flagged to check the blood sugar, which in turn i check and result obtained is 254, which i covered with 6units of insulin per sliding scale. now since its midnight and its schedule to check blood sugar, the result is 244, and per sliding scale coverage insulin to give is 4units. per pharmacist recommendation to still give the insulin coverage as pt's blood glucose is above 200. relayed situation to [employer] internet sales consultantselene ragsdale.
--- NOTE | 2020-05-09 00:04 | NUR ---
prn percocet: pt c/o abdominal pain 05/22, prn percocet administered to pt at this time. will continue to monitor and reassess.
[2020-05-09] MEDS: ALBUTEROL FS 2.5 MG/3 ML VIAL.NEB NEB SCH ×4 (01:02→19:56)
[2020-05-09] MEDS: IPRATROPIUM NEB FS 0.5 MG/2.5 ML AMPUL.NEB NEB SCH ×4 (01:02→19:56)
[2020-05-09] MEDS: METOCLOPRAMIDE HCL 10 MG/2 ML VIAL IV SCH ×3 (05:06→17:44)
[2020-05-09] MEDS: METRONIDAZOLE 500MG/ NS 100ML 500 MG in PREMIX 1 EA IV SCH ×3 (05:06→21:45)
[2020-05-09] MEDS: BLOOD SUGAR DIAGNOSTIC 1 EACH STRIP IN SCH ×3 (05:14→17:14)
[2020-05-09] MEDS: INSULIN REGULAR, HUMAN 100 UNIT/ML 3 ML VIAL SQ PRN ×3 (05:16→17:13)
--- NOTE | 2020-05-09 05:16 | NUR ---
accu check 178: fingerstick blood glucose check performed and result is 178, 3units of insulin administered per sliding scale, pt on tpn and lipids.
--- NOTE | 2020-05-09 06:48 | NUR ---
end of shift rpeort: pt remains on 2l oxygen via nc, respirations even and unlabored. kyala picc line remains patent and flushing well, infusing with tpn bag #18 at 64.057ml/hr, and lipids at 20ml/hr. no s/s of iv infiltration noted. left hand g 22 remains patent and flushing well, on hl. pt tolerated pureed diet well, kept on aspirations precautions. am care, wound care, and linen change provided. vs remains stable, needs attended. safety precautions for fall remains engaged, call light in reach, will endorse to day rn for continuity of care.
[2020-05-09] MEDS ORDERED: TPN BAG #19 IV PRN ×12 (07:00→09:00)
[2020-05-09 08:00] VITALS: BP 126/65
--- NOTE | 2020-05-09 08:00 | NUR ---
MS LUCIA AM notes Pt remains on 2l oxygen via nc, respirations even and unlabored. LUKE PICC line remains patent and flushing well, infusing with tpn bag #18 at 64.057ml/hr, and lipids at 20ml/hr. No s/s of iv infiltration noted. left hand g 22 remains patent and flushing well, on hl. Pt tolerated pureed diet well, kept on aspirations precautions. am care, wound care, and linen change provided. vs remains stable, needs attended. Safety precautions for fall remains engaged, Call light in reach,
[2020-05-09] MEDS ORDERED: BISACODYL SUPP (10 MG) 10 MG/SUPP.RECT SUPP.RECT RC PRN (09:00)
[2020-05-09] MEDS: POTASSIUM CHLORIDE 20 MEQ TAB.PRT.SR PO SCH (09:11)
[2020-05-09] MEDS: FUROSEMIDE 80 MG TABLET PO SCH (09:11)
[2020-05-09] MEDS: PANTOPRAZOLE 40 MG TABLET.DR PO SCH (09:11)
[2020-05-09] MEDS: CARVEDILOL 12.5 MG TABLET PO SCH ×2 (09:11→21:50)
[2020-05-09] MEDS: GABAPENTIN 300 MG CAPSULE PO SCH ×2 (09:11→17:45)
[2020-05-09] MEDS: MORPHINE SULFATE INJ 2 MG/ML DISP.SYRIN IV PRN (09:12)
[2020-05-09] MEDS ORDERED: FUROSEMIDE 100 MG/10 ML VIAL IV SCH (10:00)
[2020-05-09 11:04] LABS: BASOPHILS % (AUTO) 0.3 % (0.0-2.0); EOSINOPHILS % (AUTO) 0.7 % (0.0-6.0); HEMATOCRIT 29 % (39-51); HEMOGLOBIN 9.4 g/dL (13.5-17.5); LYMPHOCYTES # (AUTO) 0.8 /CMM (0.8-4.8); LYMPHOCYTES % (AUTO) 6.9 % (20.0-44.0); MEAN CORPUSCULAR HGB CONC 33 g/dl (31.0-36.0); MEAN CORPUSCULAR VOLUME 94 fL (80-96); MONOCYTES # (AUTO) 0.7 /CMM (0.1-1.30); MONOCYTES % (AUTO) 6.3 % (2.0-12.0); NEUTROPHILS # (AUTO) 9.7 /CMM (1.8-8.9); NEUTROPHILS % (AUTO) 85.8 % (43.0-81.0); PLATELET COUNT (AUTO) 220 /CMM (150-450); RED BLOOD CELL COUNT(AUTO) 3.08 MIL/uL (4.5-6.0); WHITE BLOOD COUNT (AUTO) 11.3 K/uL (4.3-11.0)
[2020-05-09 11:29] LABS: ALANINE AMINOTRANSFERASE 9 U/L (12-78); ALBUMIN 1.7 g/dL (3.4-5.0); ALKALINE PHOSPHATASE 103 U/L (46-116); ASPARTATE AMINOTRANSFERASE 17 U/L (15-37); BILIRUBIN,TOTAL 0.3 mg/dL (0.2-1.0); CALCIUM, SERUM 8.1 mg/dL (8.5-10.1); CARBON DIOXIDE 34 mmol/L (21-32); CHLORIDE 96 mmol/L (98-107); CREATININE 1.4 mg/dL (0.6-1.3); GLUCOSE 184 mg/dL (74-106); POTASSIUM 3.2 mmol/L (3.5-5.1); SODIUM SERUM 133 mmol/L (136-145); TOTAL PROTEIN, SERUM 7.8 g/dL (6.4-8.2); UREA NITROGEN, BLOOD 43 mg/dL (7-18)
[2020-05-09] MEDS ORDERED: TPN BAG #20 IV PRN ×8 (12:00)
[2020-05-09] MEDS ORDERED: TPN BAG #21 IV PRN ×6 (12:00)
[2020-05-09] MEDS: FUROSEMIDE 100 MG/10 ML VIAL IV SCH ×2 (12:38→17:44)
[2020-05-09 16:00] VITALS: BP 121/66
[2020-05-09] MEDS: CEFTRIAXONE 1 G in IV D5W 50 ML IV SCH (17:44)
--- NOTE | 2020-05-09 18:56 | NUR ---
PT MADE 2 SOFT MODERATE BROWN BM.
--- NOTE | 2020-05-09 18:57 | NUR ---
PT RESTING IN BED WITH ONGOING TPN #19 RUNNING AT 64.679 ML/HR INFUSING WELL.LIPID INFUSION COMPLETED. WITH ONGOING IV ATB ROCEPHIN INFUSING WELL TO LT HAND. PT ATE 70-80% OF MEALS WITH ASPIRATION PRECAUTIONS. HOB ELEVATED..DENIES ANY PAIN OR DISTRESS.TURNED AND REPOSITIONED EVERY TWO HRS. AFLOAT LAYO HEELS WITH PILLOWS.
--- NOTE | 2020-05-09 19:30 | NUR ---
MS RN NOTES PATIENT RECEIVED IN BED SLEEPING, EASILY AWAKEN BY NAME AND LIGHT TOUCH, MAINLY CITIZEN OF [place] AND [place] SPEAKING. PATIENT ON NASAL CANNULA 2L, TOLERATING SETTING WELL, O2 SATURATION AT 99%, WITH NO SIGNS OF SOB AT THIS TIME WITH EVEN NON-LABORED BREATHING. PATIENT IV ACCESS INTACT AND PATENT, CURRENTLY INFUSING TPN AT 64.679 ml/hr. SAFETY PRECAUTIONS IMPLEMENTED WITH BED IN THE LOWEST POSITION, BED LOCKED, BILATERAL SIDE RAILS UP, BED ALARM ON, AND CALL LIGHT WITHIN EASY REACH OF PATIENT.
[2020-05-09 20:00] VITALS: BP 140/60
[2020-05-09] MEDS: TERAZOSIN HCL 1 MG CAPSULE PO SCH (21:49)
[2020-05-10] MEDS: METOCLOPRAMIDE HCL 10 MG/2 ML VIAL IV SCH ×5 (00:02→23:16)
[2020-05-10] MEDS: BLOOD SUGAR DIAGNOSTIC 1 EACH STRIP IN SCH ×5 (00:02→23:21)
[2020-05-10] MEDS: INSULIN REGULAR, HUMAN 100 UNIT/ML 3 ML VIAL SQ PRN ×6 (00:12→23:39)
--- NOTE | 2020-05-10 00:12 | NUR ---
MS RN NOTES PATIENT'S BLOOD SUGAR 187, PER SLIDING SCALE PROTOCOL ADMINISTERED 3 UNITS OF INSULIN. PROVIDED SNACKS TO PATIENT. WILL CONTINUE TO MONITOR PATIENT.
[2020-05-10] MEDS: IPRATROPIUM NEB FS 0.5 MG/2.5 ML AMPUL.NEB NEB SCH ×4 (01:55→19:40)
[2020-05-10] MEDS: ALBUTEROL FS 2.5 MG/3 ML VIAL.NEB NEB SCH ×4 (01:55→19:40)
[2020-05-10] MEDS: METRONIDAZOLE 500MG/ NS 100ML 500 MG in PREMIX 1 EA IV SCH ×3 (04:56→21:06)
--- NOTE | 2020-05-10 06:08 | NUR ---
MS RN NOTES PATIENT'S BLOOD SUGAR 201, PER SLIDING SCALE 4 UNITS OF INSULIN NEED TO BE ADMINISTERED. ADMINISTERED 4 UNITS WITH NEW TPN PHYLLIS, LUCIA HARRISON, CO-SIGNED. WILL CONTINUE TO MONITOR PATIENT
[2020-05-10 06:32] LABS: BASOPHILS % (AUTO) 0.4 % (0.0-2.0); EOSINOPHILS % (AUTO) 0.4 % (0.0-6.0); HEMATOCRIT 28 % (39-51); HEMOGLOBIN 8.9 g/dL (13.5-17.5); LYMPHOCYTES # (AUTO) 0.9 /CMM (0.8-4.8); LYMPHOCYTES % (AUTO) 8.2 % (20.0-44.0); MEAN CORPUSCULAR HGB CONC 32 g/dl (31.0-36.0); MEAN CORPUSCULAR VOLUME 94 fL (80-96); MONOCYTES # (AUTO) 0.9 /CMM (0.1-1.30); MONOCYTES % (AUTO) 7.5 % (2.0-12.0); NEUTROPHILS # (AUTO) 9.5 /CMM (1.8-8.9); NEUTROPHILS % (AUTO) 83.5 % (43.0-81.0); PLATELET COUNT (AUTO) 207 /CMM (150-450); RED BLOOD CELL COUNT(AUTO) 2.96 MIL/uL (4.5-6.0); WHITE BLOOD COUNT (AUTO) 11.4 K/uL (4.3-11.0)
[2020-05-10 06:39] LABS: ALANINE AMINOTRANSFERASE 9 U/L (12-78); ALBUMIN 1.6 g/dL (3.4-5.0); ALKALINE PHOSPHATASE 116 U/L (46-116); ASPARTATE AMINOTRANSFERASE 15 U/L (15-37); BILIRUBIN,TOTAL 0.3 mg/dL (0.2-1.0); CALCIUM, SERUM 8.1 mg/dL (8.5-10.1); CARBON DIOXIDE 36 mmol/L (21-32); CHLORIDE 95 mmol/L (98-107); CREATININE 1.7 mg/dL (0.6-1.3); GLUCOSE 221 mg/dL (74-106); MAGNESIUM 1.7 mg/dL (1.8-2.4); PHOSPHORUS 3.3 mg/dL (2.5-4.9); POTASSIUM 3.5 mmol/L (3.5-5.1); SODIUM SERUM 133 mmol/L (136-145); TOTAL PROTEIN, SERUM 7.6 g/dL (6.4-8.2); UREA NITROGEN, BLOOD 45 mg/dL (7-18)
--- NOTE | 2020-05-10 07:29 | NUR ---
MS RN NOTES PATIENT IN BED SLEEPING, EASILY AWAKEN. ON NASAL CANNULA, 2L WITH NON-LABORED NO SIGNS OF SOB. IV ACCESS INTACT AND PATENT, CURRENTLY INFUSING TPN. ABDOMINAL DRESSING CHANGED. PATIENT SKIN KEPT CLEAN AND DRY. DENIES ANY PAIN OR DISCOMFORT AT THIS TIME. PROVIDED COMFORT MEASURES TO PATIENT. SAFETY PRECAUTIONS IN PLACE, WITH BED LOCKED, BED ALARM ON, BILATERAL SIDE RAILS UP, AND CALL LIGHT WITHIN EASY REACH OF THE PATIENT. WILL ENDORSE PLAN OF CARE TO UPCOMING DAYSHIFT NURSE.
--- NOTE | 2020-05-10 07:30 | NUR ---
MS/RN OPENING NOTES Patient resting in bed, A&O x 2, english speaking. No s/s of pain or discomfort noted at this time. Breathing even and non-labored on 2L oxygen via NC. No cardiac distress noted at this time. LUKE PICC line noted, infusing TPN at 65 mL/hr. No s/s infiltration or infection noted. IV access noted on L hand #22, patent and intact, flushing well. Sensation from all peripheral extremities intact. Fall precautions noted. Will continue with current medical management.
[2020-05-10 08:00] VITALS: BP 109/60
[2020-05-10] MEDS: POTASSIUM CHLORIDE 20 MEQ TAB.PRT.SR PO SCH (08:20)
[2020-05-10] MEDS: GABAPENTIN 300 MG CAPSULE PO SCH ×2 (08:20→17:22)
[2020-05-10] MEDS: PANTOPRAZOLE 40 MG TABLET.DR PO SCH (08:21)
[2020-05-10] MEDS: CARVEDILOL 12.5 MG TABLET PO SCH ×2 (08:49→21:19)
--- NOTE | 2020-05-10 09:00 | NUR ---
MS/RN NOTES Patient able to tolerate and finish 100% of pureed diet for breakfast.
[2020-05-10] MEDS: Magnesium 1GM/D5W 100ML PREMIX 100 ML IV SCH ×2 (09:27→10:47)
[2020-05-10] MEDS ORDERED: POTASSIUM CHLORIDE 20 MEQ TAB.PRT.SR PO SCH (10:00)
--- NOTE | 2020-05-10 10:00 | NUR ---
MS/RN NOTES Upon providing routine morning care and doing head-to-toe skin assessment, patient noted to have sacral redness with flaking skin. Provided gentle skin care, applied z-guard with mepilex dressing. Dr. Blackburn made aware with order of wound consult.
[2020-05-10] MEDS: FUROSEMIDE 80 MG TABLET PO SCH (10:09)
[2020-05-10 11:33] LABS: CALCIUM, SERUM 8.2 mg/dL (8.5-10.1); CARBON DIOXIDE 35 mmol/L (21-32); CHLORIDE 96 mmol/L (98-107); CREATININE 1.4 mg/dL (0.6-1.3); GLUCOSE 234 mg/dL (74-106); POTASSIUM 3.4 mmol/L (3.5-5.1); SODIUM SERUM 132 mmol/L (136-145); UREA NITROGEN, BLOOD 47 mg/dL (7-18)
--- NOTE | 2020-05-10 13:03 | NUR ---
MS/RN NOTES Patient reported to eat 75-100% of pureed meals for the past two days. Dr. Blackburn made aware, ordered to discontinue TPN infusion. Addendum: 05/10/20 at 1748 by MINERVA MORGAN RN CORRECTION: discontinue TPN infusion AND lipid infusion
--- NOTE | 2020-05-10 13:15 | NUR ---
MS/RN NOTES Tapered TPN to 35 mls/hr @1315. Will continue to monitor for any changes in condition.
[2020-05-10] MEDS ORDERED: TPN BAG #21 IV PRN ×6 (13:47)
[2020-05-10] MEDS ORDERED: TPN BAG #22 IV PRN ×8 (14:00)
--- NOTE | 2020-05-10 14:30 | NUR ---
MS/RN NOTES Tapered TPN to 15 mls/hr. No s/s of hypoglycemia noted. Will continue to monitor patient.
[2020-05-10 16:00] VITALS: BP 117/57
--- NOTE | 2020-05-10 16:15 | NUR ---
MS/RN NOTES Tapered TPN to 35 mls/hr. Will continue to monitor patient for changes in condition. Addendum: 05/10/20 at 1805 by MINERVA MORGAN RN Tapered TPN to 35 mls/hr @1315.
[2020-05-10] MEDS: CEFTRIAXONE 1 G in IV D5W 50 ML IV SCH (17:23)
--- NOTE | 2020-05-10 17:23 | NUR ---
MS/RN NOTES Discontinued TPN infusion. No s/s of hypoglycemia noted. Will continue to monitor patient for any changes in condition.
--- NOTE | 2020-05-10 19:27 | NUR ---
MS RN NOTES PATIENT RECEIVED IN BED SLEEPING EASILY AWAKEN BY LIGHT TOUCH AND NAME. ALERT AND ORIENTED X 2, SYRIAN SPEAKING. ON NASAL CANNULA 2L, TOLERATING SETTINGS WITH NO SIGNS OF SOB AT THIS TIME, WITH EVEN NON-LABORED BREATHING. IV ACCESS IN PLACE, INTACT AND PATENT. SKIN WARM AND DRY TO TOUCH. ABDOMINAL DRESSING IN PLACE. SAFETY PRECAUTIONS IN PLACE WITH BED LOCKED, BED ALARM ON, BILATERAL SIDE RAILS UP, AND CALL LIGHT WITHIN EASY REACH OF THE PATIENT. WILL CONTINUE TO MONITOR PATIENT.
[2020-05-10 20:00] VITALS: BP 105/68
[2020-05-10] MEDS: TERAZOSIN HCL 1 MG CAPSULE PO SCH (21:18)
--- NOTE | 2020-05-10 23:39 | NUR ---
MS RN NOTES PATIENT'S BLOOD SUGAR 220, PER SLIDING SCALE PROTOCOL ADMINISTERED 4 UNITS OF INSULIN. PROVIDED SNACKS TO PATIENT, AND ASSISTED PATIENT TO EAT. WILL CONTINUE TO MONITOR PATIENT.
[2020-05-11] MEDS: IPRATROPIUM NEB FS 0.5 MG/2.5 ML AMPUL.NEB NEB SCH ×3 (01:40→13:17)
[2020-05-11] MEDS: ALBUTEROL FS 2.5 MG/3 ML VIAL.NEB NEB SCH ×3 (01:40→13:17)
[2020-05-11] MEDS: METRONIDAZOLE 500MG/ NS 100ML 500 MG in PREMIX 1 EA IV SCH ×2 (05:26→12:10)
[2020-05-11] MEDS: METOCLOPRAMIDE HCL 10 MG/2 ML VIAL IV SCH ×2 (05:27→12:09)
[2020-05-11] MEDS: BLOOD SUGAR DIAGNOSTIC 1 EACH STRIP IN SCH ×2 (06:01→11:46)
[2020-05-11] MEDS: INSULIN REGULAR, HUMAN 100 UNIT/ML 3 ML VIAL SQ PRN (06:26)
--- NOTE | 2020-05-11 06:44 | NUR ---
MS RN NOTES PATIENT IN BED SLEEPING, EASILY AWAKEN BY NAME AND LIGHT TOUCH. ON NASAL CANNULA, 2L WITH NON-LABORED AND NO SIGNS OF SOB NOTED. IV ACCESS INTACT AND PATENT. ABDOMINAL DRESSING CHANGED. PATIENT SKIN KEPT CLEAN AND DRY. DENIES ANY PAIN OR DISCOMFORT AT THIS TIME. PROVIDED COMFORT MEASURES TO PATIENT. PATIENT BLOOD SUGAR 143, PER SLIDING SCALE PROTOCOL, ADMINISTERED 2 UNITS OF INSULIN. SAFETY PRECAUTIONS IN PLACE WITH BED LOCKED, BED ALARM ON, BED IN THE LOWEST POSITION, BILATERAL SIDE RAILS UP, AND CALL LIGHT WITHIN EASY REACH OF THE PATIENT. WILL ENDORSE PLAN OF CARE TO UPCOMING DAYSHIFT NURSE.
[2020-05-11 07:30] VITALS: BP 108/66
[2020-05-11 08:00] VITALS: BP 108/66
[2020-05-11 08:13] LABS: PHOSPHORUS 3.6 mg/dL (2.5-4.9)
[2020-05-11 09:10] VITALS: BP 108/66
[2020-05-11] MEDS: PANTOPRAZOLE 40 MG TABLET.DR PO SCH (09:10)
[2020-05-11] MEDS: CARVEDILOL 12.5 MG TABLET PO SCH (09:10)
[2020-05-11] MEDS: POTASSIUM CHLORIDE 20 MEQ TAB.PRT.SR PO SCH (09:10)
[2020-05-11] MEDS: GABAPENTIN 300 MG CAPSULE PO SCH (09:10)
[2020-05-11] MEDS: FUROSEMIDE 80 MG TABLET PO SCH (09:10)
[2020-05-11] MEDS ORDERED: CLOTRIMAZOLE 1% 15 GM TUBE TP SCH (09:30)
--- NOTE | 2020-05-11 09:33 | NUR ---
WOUND CARE CONSULT: PT PRESENTS WITH SOME INCONTINENCE ASSOCIATED SKIN DAMAGE TO GLUTEAL CREASE AND RASH TO BUTTOCKS, PERINEUM, INNER THIGHS AND GROIN FOLDS. PT NOTED TO BE INCONTINENT OF STOOL AND URINE. ABDOMINAL SURGICAL DRESSINGS ARE DRY AND INTACT. RECOMMENDATIONS MADE FOR SKIN PROTECTION. DISCUSSED WITH NURSING STAFF. PT IS ON AINSLEY ISOFLEX LOW AIRLOSS BED. WILL SEE PRN. PT ASSISTS WITH TURNING AND REPOSITIONING IN BED. IN AGREEMENT WITH PLAN OF CARE. Addendum: 05/11/20 at 0936 by BERNARDA COBB WNDNU Amended: Links added.
[2020-05-11 10:26] LABS: ALANINE AMINOTRANSFERASE 10 U/L (12-78); ALBUMIN 1.6 g/dL (3.4-5.0); ALKALINE PHOSPHATASE 116 U/L (46-116); ASPARTATE AMINOTRANSFERASE 25 U/L (15-37); BILIRUBIN,TOTAL 0.3 mg/dL (0.2-1.0); CALCIUM, SERUM 8.1 mg/dL (8.5-10.1); CARBON DIOXIDE 33 mmol/L (21-32); CHLORIDE 95 mmol/L (98-107); CREATININE 1.6 mg/dL (0.6-1.3); GLUCOSE 167 mg/dL (74-106); SODIUM SERUM 133 mmol/L (136-145); TOTAL PROTEIN, SERUM 7.8 g/dL (6.4-8.2); UREA NITROGEN, BLOOD 43 mg/dL (7-18)
--- NOTE | 2020-05-11 11:30 | NUR ---
Wound care done as ordered.
[2020-05-11] MEDS ORDERED: BISA10SU11 RC (12:33)
[2020-05-11] MEDS ORDERED: CLOT15CR35 TP (12:33)
[2020-05-11] MEDS ORDERED: CEFT1FRO2 IV (12:33)
[2020-05-11] MEDS ORDERED: ACET325T53 PO (12:33)
[2020-05-11] MEDS ORDERED: IPRA0.2S9 NEB ×2 (12:33)
[2020-05-11] MEDS ORDERED: ALBUT2 NEB ×2 (12:33)
[2020-05-11] MEDS ORDERED: FURO80TA3 PO (12:33)
[2020-05-11] MEDS ORDERED: METR500P3 IV (12:33)
[2020-05-11] MEDS ORDERED: Blood Sugar Diagnostic IN (12:33)
[2020-05-11] MEDS ORDERED: PANT40TA2 PO (12:33)
[2020-05-11] MEDS ORDERED: INSU100V28 SQ (12:33)
--- NOTE | 2020-05-11 15:12 | NUR ---
report called to Anna MYERS from [facility]
--- NOTE | 2020-05-11 16:21 | NUR ---
Patient cleared for d/c to SNF by . Patient awake oriented x2, Portuguese speaking only. Breathing unlabored and even on 2l O2 saturating well. VS are stable and within baseline. Per ID IV antibiotics d/c. ABD surgical incision dressing changed prior d/c and all needs attended. Patient on puree diet tolerating well. Last BM today in am. IV line removed and midline removed, no bleeding noted. D/C instructions provided and med recon provided for facility. Patient's family informed by director of casework services. Patient has clothes from home. Valuable form and d/c instructions sighed by 2 nurses. D/C pictures in the chart ; taken by scene shifter nurse.
[2020-05-11] MEDS ORDERED: METRONIDAZOLE 250 MG TABLET GT SCH (21:00)
== END 2020-05-11 16:20 | DRG 710 ==
LOC: MED 03:45 → ICU 04-22 17:15 → MED 04-24 13:44 → TELE 04-24 13:49 → MED 04-25 10:27
PROVIDERS: ADMIT Internal Medicine; ATTEND Nurse Practitioner Acute Care
PROC: 0FT44ZZ Resection of Gallbladder, Percutaneous Endoscopic Approach (ICD-10-PCS; principal; 2020-04-19)
PROC: 0DJ08ZZ Inspection of Upper Intestinal Tract, Via Natural or Artificial Opening Endoscopic (ICD-10-PCS; 2020-04-22)
PROC: 0BH17EZ Insertion of Endotracheal Airway into Trachea, Via Natural or Artificial Opening (ICD-10-PCS; 2020-04-22)
PROC: 5A1935Z Respiratory Ventilation, Less than 24 Consecutive Hours (ICD-10-PCS; 2020-04-22)
PROC: 0FQ00ZZ Repair Liver, Open Approach (ICD-10-PCS; 2020-04-22)
PROC: 0DQ90ZZ Repair Duodenum, Open Approach (ICD-10-PCS; 2020-04-22)
PROC: 02HV33Z Insertion of Infusion Device into Superior Vena Cava, Percutaneous Approach (ICD-10-PCS; 2020-04-27)
PROC: B548ZZA Ultrasonography of Superior Vena Cava, Guidance (ICD-10-PCS; 2020-04-27)
DX: A41.9 Sepsis, unspecified organism (principal); J96.00 Acute respiratory failure, unspecified whether with hypoxia or hypercapnia; N17.0 Acute kidney failure with tubular necrosis; E43 Unspecified severe protein-calorie malnutrition; K26.5 Chronic or unspecified duodenal ulcer with perforation; I50.23 Acute on chronic systolic (congestive) heart failure; K31.6 Fistula of stomach and duodenum; K81.0 Acute cholecystitis; E66.01 Morbid (severe) obesity due to excess calories; R18.8 Other ascites; I48.91 Unspecified atrial fibrillation; E11.22 Type 2 diabetes mellitus with diabetic chronic kidney disease; D63.8 Anemia in other chronic diseases classified elsewhere; I25.5 Ischemic cardiomyopathy; K82.A1 Gangrene of gallbladder in cholecystitis; I25.10 Atherosclerotic heart disease of native coronary artery without angina pectoris; N40.0 Benign prostatic hyperplasia without lower urinary tract symptoms; Z95.810 Presence of automatic (implantable) cardiac defibrillator; I13.0 Hypertensive heart and chronic kidney disease with heart failure and stage 1 through stage 4 chronic kidney disease, or unspecified chronic kidney disease; E11.319 Type 2 diabetes mellitus with unspecified diabetic retinopathy without macular edema; I70.0 Atherosclerosis of aorta; J98.11 Atelectasis; M81.0 Age-related osteoporosis without current pathological fracture; N18.9 Chronic kidney disease, unspecified; E78.5 Hyperlipidemia, unspecified; Z79.4 Long term (current) use of insulin; Z96.651 Presence of right artificial knee joint; I34.0 Nonrheumatic mitral (valve) insufficiency; Z87.11 Personal history of peptic ulcer disease; B96.20 Unspecified Escherichia coli [E. coli] as the cause of diseases classified elsewhere; K82.8 Other specified diseases of gallbladder
CPT/HCPCS: 31720; 36415; 36569; 36600; 71045-TC; 74018; 76770-TC; 78226; 80048-TC; 80053-TC; 80061-TC; 81000-TC; 82550-TC; 82570-TC; 82803-TC; 82962-TC; 83690-TC; 83735-TC; 83970; 84100-TC; 84134-TC; 84155; 84155-TC; 84165; 84300-TC; 84443-TC; 84478-TC; 85025-TC; 85730-TC; 87070-TC; 87081-TC; 87186-TC; 88304-TC; 92611-TC; 93307-TC; 94003-TC; 94760-TC; 94799-TC; 97110-TC; 97112-TC; 97116-TC; 97530-TC; A4216; A4349; A6253; A6403; A9537; A9563; C1751; C9113; G0378; J0330; J0690; J0696; J1100; J1170; J1815; J1940; J2250; J2270; J2405; J2543; J2704; J2765; J3010; J3475; J3480; J3490; J7030; J7040; J7050; J7060; Q9966; Q9968; U0003-CS